=== PATIENT | female | born 1990 | race Caucasian/White ===

== ENCOUNTER → 2022-09-13 16:34 | Outpatient (BNVA) | payer MEDICAID, SELFPAY | PROVIDERS: Visit Provider Nurse Practitioner Family | DX: R30.0 Dysuria (principal); N76.0 Acute vaginitis; B96.89 Other specified bacterial agents as the cause of diseases classified elsewhere; W57.XXXA Bitten or stung by nonvenomous insect and other nonvenomous arthropods, initial encounter; B37.9 Candidiasis, unspecified; F32.9 Major depressive disorder, single episode, unspecified; F41.0 Panic disorder [episodic paroxysmal anxiety]; F41.9 Anxiety disorder, unspecified; M79.7 Fibromyalgia; F43.10 Post-traumatic stress disorder, unspecified; R53.83 Other fatigue; B37.0 Candidal stomatitis; J03.80 Acute tonsillitis due to other specified organisms | CPT/HCPCS: 80053; 84443; 85651; 86003; 86008; 86140; 86618; 86666; 86757; 87491; 87591; 87661 ==

== ENCOUNTER → 2022-10-05 10:25 | Outpatient (BNVA) | payer MEDICAID, SELFPAY | PROVIDERS: Visit Provider Nurse Practitioner Family | DX: R73.9 Hyperglycemia, unspecified (principal) | CPT/HCPCS: 82962 ==

== ENCOUNTER 2022-11-27 17:55 | Emergency (ER) | payer MEDICAID, SELFPAY ==
[2022-11-27 17:56] VITALS: BP 141/83; PULSE 93; RESP 15; TEMP 36.8; O2SAT 98; BMI 25.6
--- NOTE | 2022-11-27 18:33 | W.ED.PSYCHS ---
HPI - Psych General: Chief Complaint: Psychiatric Symptoms Stated Complaint: PSYCH EVAL Time Seen by Provider: 11/27/22 18:06 Source: patient Mode of arrival: EMS Limitations: no limitations History of Present Illness: This patient was transported to our emergency department from her home by EMS. Patient alleges that she has not slept for many days, someone has been messing with her medicine, people are changing her thermostat in her home and she is uncertain of why these events are occurring. She states that she has not had thoughts of harming herself or others. She denies hallucinations. She states she lives with another individual and also shares 2 children with their father. She denies any recent illness. Associated psychiatric symptoms: racing thoughts Associated symptoms: Deny auditory hallucinations, visual hallucinations, homicidal ideation or suicidal ideation Review of Systems Const: Denies: fever(s) or chills Eyes: Denies: change in vision ENMT: Denies: throat pain or odynophagia Card: Denies: chest pain, syncope or pre-syncope Resp: Denies: dyspnea, productive cough or non-productive cough GI: Denies: abdominal pain, nausea, vomiting or diarrhea : Denies: flank pain, difficulty voiding, dysuria, vaginal bleeding or vaginal discharge Musc: Denies: neck pain or back pain Skin/Breast: Denies: rash Neuro: Denies: headache(s), numbness in extremities or weakness in extremities Psych: Reports: anxiety, sleeping less and difficulty concentrating; Denies: visual hallucinations, auditory hallucinations, suicidal ideation or homicidal ideation PFS ED PFSH: Social History Current occupational status: employed Current gender identity: Female Special martin needs: No Physical Exam Narrative: EXAM NARRATIVE: The patient generally is cooperative. She will stop midsentence and then to be recentered and then will continue with the conversation. Const: COMMON NORMALS: average body habitus and alert GENERAL APPEARANCE: cooperative ORIENTATION/CONSCIOUSNESS: Yes awake HENMT: COMMON NORMALS: normocephalic, Normal nasal mucous membranes and turbinates present, moist oral mucous membranes and oropharynx normal HEAD & SCALP: normocephalic NOSE: Normal nasal mucous membranes and turbinates present Eye: COMMON NORMALS: Equal, round and reactive pupils present, EOMs intact bilaterally and conjunctivae normal CONJUNCTIVA: Yes conjunctivae normal PUPIL: Yes Equal, round and reactive pupils present Neck/C-Spine: COMMON NORMALS: full ROM, no lymphadenopathy and supple Chest: COMMONS NORMALS: normal inspection of the chest Resp: COMMON NORMALS: normal respiratory effort, No retractions and clear to auscultation bilaterally AUSCULTATION: clear to auscultation bilaterally Cardio: COMMON NORMALS: regular rate, regular rhythm, No murmurs present (Cardio) and Peripheral pulses 2+ throughout RATE: regular rate RHYTHM: regular rhythm PERIPHERAL PULSES: Peripheral pulses 2+ throughout GI: COMMON NORMALS: Normal to inspection, nondistended, normoactive bowel sounds present, Soft to palpation and non-tender PALPATION: Yes Soft to palpation : COMMON NORMALS: Yes no CVA tenderness BLADDER/KIDNEY EXAM: Yes no CVA tenderness Back/Pelvis: COMMON NORMALS: no CVA tenderness, thoracic and lumbar spine normal to inspection, no thoracic nor lumbar tenderness, thoraco-lumbar ROM normal and straight leg raise negative bilaterally Extremity: COMMON NORMALS: normal to inspection, full ROM, capillary refill normal, no calf tenderness and no pedal edema Neuro: COMMON NORMALS: moves all extremities, no focal motor deficits and no sensory deficits noted SENSORIUM/ORIENTATION: Yes alert CRANIAL NERVES: Yes CN normal except as noted Psych: COMMON NORMALS: cooperative ATTITUDE: Yes evasive ACTIVITY/MOTOR BEHAVIOR: Yes appropriate eye contact, Yes fidgeting and Yes disorganized behavior SPEECH: Yes rapid MOOD & AFFECT: Yes Labile affect present THOUGHT PROCESS: Circumstantial thought process present and disorganized INSIGHT: Limited insight present (Psych) JUDGEMENT: Limited judgement present (Psych) Skin: COMMON NORMALS: no rashes or lesions noted and no wounds NARRATIVE SKIN EXAM: Numerous skin tattoos noted GENERAL SKIN EXAM: no rashes or lesions noted Course Reevaluation(s): Reevaluation #1: Patient continues to state that she will give us a urine sample goes to the bathroom and then comes back with a sample cup that is empty and that she throws in the trash. She is very evasive about answering many of my questions. Time: 20:56 Reevaluation #2: Patient remains uncooperative want to comply with any of our request forAnd invasive. She does not rating provide a urine sample or otherwise engaging us in an attempt to determine what her ultimate needs and desires to be. At no time during the emergency department evaluation as she exhibited any thoughts of self-harm or harm to others. While she is evasive she certainly remains alert and findings it was suggested Not exhibiting any acute psychosis acute psychosis, intoxication, under the influence, inability to make decisions. Based upon current presentation disease she does not exhibit any findings to suggest a acute mental health emergency and suitable to be discharged with return precautions. Time: 21:46 Vital Signs: Vital signs: Vital Signs Temperature 98.2 F 11/27/22 17:56 Pulse Rate 93 11/27/22 17:56 Respiratory Rate 15 11/27/22 17:56 Blood Pressure 141/83 11/27/22 17:56 Pulse Oximetry 98 11/27/22 17:56 Oxygen Delivery Me thod Room Air 11/27/22 17:56 MDM - Psych Medical Decision Making This patient presented to our emergency department from her home via EMS at her request. Her complaint and/or desires from the emergency department visit were very very vague from the beginning and continued to be so throughout her evaluation and observation time in the emergency department. He was very forthcoming in that she had no desires thoughts or plan to harm herself or others. She adamantly denied any hallucinations or other loosening of associations. She initially said she wanted to be left alone and wanted a nap because she had not slept well recently. We continue to engage her in attempts to obtain urine sample for additional evaluation which she was very evasive and continue to refuse to provide such samples. She remained otherwise reasonably cooperative and when asked on multiple occasions whether she would like to go home she expressed in the affirmative. After prolonged period of observation in the emergency department is felt that she was not an obvious risk to herself or others and certainly had the ability to make life decisions and treatment decisions and was not cooperating in any attempt to provide her additional evaluation and/or offer her additional treatment. She has been discharged in a stable condition with return precautions. Medical Records I reviewed the patient's medical records. Prior history of hyperactivity disorder without any history of suicidality, depression etc. Lab Data I reviewed the patient's lab results. 11/27/22 19:10 11/27/22 19:10 Laboratory Results WBC 10.24 10^3/uL (3.29-11.43) 11/27/22 19:10 RBC 3.51 10^6/uL (3.85-5.65) L 11/27/22 19:10 Hgb 10.90 g/dL (11.27-16.99) L 11/27/22 19:10 Hct 32.6 % (36-47) L 11/27/22 19:10 MCV 92.9 fl (85-98) 11/27/22 19:10 MCH 31.1 pg (27-33) 11/27/22 19:10 MCHC 33.4 g/dL (30-55) 11/27/22 19:10 RDW 14.5 % (12.1-15.1) 11/27/22 19:10 Plt Count 280 10^3/cmm (157-399) 11/27/22 19:10 MPV 9.7 fL (7.4-10.4) 11/27/22 19:10 Neut % (Auto) 57.4 % 11/27/22 19:10 Lymph % (Auto) 34.1 % 11/27/22 19:10 Elk % (Auto) 6.5 % 11/27/22 19:10 Eos % (Auto) 1.1 % 11/27/22 19:10 Baso % (Auto) 0.6 % 11/27/22 19:10 Neut # (Auto) 5.88 10^3/uL (1.8-7.7) 11/27/22 19:10 Lymph # (Auto) 3.5 10^3/uL (0.8-4.8) 11/27/22 19:10 Elk # (Auto) 0.7 10^3/uL (0.2-0.9) 11/27/22 19:10 Eos # (Auto) 0.1 10^3/uL (0.0-0.8) 11/27/22 19:10 Baso # (Auto) 0.1 10^3/uL (0.0-0.1) 11/27/22 19:10 Nucleated RBC % (auto) 0 % 11/27/22 19:10 Nucleated RBCs # 0.0 /100WBC 11/27/22 19:10 Sodium 142 mmol/L (136-145) 11/27/22 19:10 Potassium 3.6 mmol/L (3.5-5.1) 11/27/22 19:10 Chloride 106 mmol/L (98-107) 11/27/22 19:10 Carbon Dioxide 26 mmol/L (22-29) 11/27/22 19:10 Anion Gap 13.6 (5-19) 11/27/22 19:10 BUN 5 mg/dL (6-20) L 11/27/22 19:10 Creatinine 0.7 mg/dL (0.5-0.9) 11/27/22 19:10 GFR Calculation 96.4 mL/min (90-130) 11/27/22 19:10 Glucose 108 mg/dL (65-115) 11/27/22 19:10 Calculated Osmolality 292 mOsm/kg (285-295) 11/27/22 19:10 Calcium 8.5 mg/dL (8.5-10.5) 11/27/22 19:10 Total Bilirubin 0.4 mg/dL (0.15-1.2) 11/27/22 19:10 AST 15 U/L (0-32) 11/27/22 19:10 ALT 15 U/L (0-33) 11/27/22 19:10 Alkaline Phosphatase 51 U/L (35-105) 11/27/22 19:10 Total Protein 6.8 g/dL (6.6-8.7) 11/27/22 19:10 Albumin 4.1 g/dL (3.5-5.2) 11/27/22 19:10 Globulin 2.7 g/dL (1.3-4.6) 11/27/22 19:10 Salicylates < 0.3 mg/dL (3-10) L 11/27/22 19:10 Acetaminophen < 5.0 ug/mL (10-30) L 11/27/22 19:10 No radiology studies performed this visit Discharge Plan Discharge Patient Disposition: Home Clinical Impression: ADHD (attention deficit hyperactivity disorder) Condition: Stable Prescriptions: No Action magnesium sulfate (bulk) [Epsom Salt] 100 % crystals 1 applic topical TID PRN (Reason: pain) Qty: 2500 0RF fluconazole [Diflucan] 100 mg tablet 100 mg PO DAILY 7 Days Qty: 7 0RF citalopram [Celexa] 40 mg tablet 40 mg PO DAILY 30 Days Qty: 30 5RF cyclobenzaprine 10 mg tablet 10 mg PO TID PRN (Reason: muscle spasm) Qty: 90 1RF guanfacine 1 mg tablet extended release 24 hr 1 mg PO DAILY 30 Days Qty: 30 5RF ibuprofen 800 mg tablet 800 mg PO TID PRN (Reason: pain) Qty: 90 1RF buspirone 10 mg tablet 10 mg PO TID PRN (Reason: anxiety) Qty: 90 0RF fluticasone propionate [Flonase Allergy Relief] 50 mcg/actuation spray,suspension 2 spray intranasal DAILY Qty: 16 3RF Rx Instructions: administer into each nostril cetirizine [Zyrtec] 10 mg tablet 10 mg PO DAILY 90 Days Qty: 90 1RF tramadol 50 mg tablet 50 mg PO TID PRN (Reason: pain) Qty: 90 0RF nystatin 100,000 unit/mL suspension 5 ml buccal TID Qty: 473 0RF Rx Instructions: administer 1/2 of dose in each side of the mouth Discharge Orders: Discharge ED (Routine); Ordered 11/27/22 Ordered By: Austyn Cooper Discharge Diet: Usual diet Discharge Activity: Resume usual activity Patient Instructions: Opioid Safety, Pain Management Activity Restrictions/Additional Instructions: Continue all your usual medications as prescribed. Follow-up with your regular doctor in the next 10 to 14 days for reevaluation. If it anytime you begin to have thoughts of harming yourself, harming or others, or any other concerning thoughts return to this emergency department for reevaluation. Coding Level of Care Code ED Correspondence Section Supervisor for Prerna Hugo
[2022-11-27 19:19] LABS: Basophils # 0.1 10^3/uL (0.0-0.1); Basophils % 0.6 %; Eosinophils # 0.1 10^3/uL (0.0-0.8); Eosinophils % 1.1 %; Hematocrit 32.6 % (36-47); Lymphocytes # 3.5 10^3/uL (0.8-4.8); Lymphocytes % 34.1 %; Mean Corpuscular HGB Conc 33.4 g/dL (30-55); Mean Corpuscular Hemoglobin 31.1 pg (27-33); Mean Corpuscular Volume 92.9 fl (85-98); Mean Platelet Volume 9.7 fL (7.4-10.4); Monocytes # 0.7 10^3/uL (0.2-0.9); Monocytes % 6.5 %; Neutrophils # 5.88 10^3/uL (1.8-7.7); Neutrophils % 57.4 %; Nucleated Red Blood Cells % 0 %; Platelet Count 280 10^3/cmm (157-399); Red Blood Count 3.51 10^6/uL (3.85-5.65); Red Cell Distribution Width 14.5 % (12.1-15.1); White Blood Count 10.24 10^3/uL (3.29-11.43)
[2022-11-27 19:34] LABS: Alanine Aminotransferase 15 U/L (0-33); Albumin Level 4.1 g/dL (3.5-5.2); Alkaline Phosphatase 51 U/L (35-105); Anion Gap 13.6 (5-19); Aspartate Amino Transferase 15 U/L (0-32); Blood Urea Nitrogen 5 mg/dL (6-20); Calcium 8.5 mg/dL (8.5-10.5); Carbon Dioxide 26 mmol/L (22-29); Chloride 106 mmol/L (98-107); Globulin 2.7 g/dL (1.3-4.6); Glomerular Filtration Rate 96.4 mL/min (90-130); Glucose 108 mg/dL (65-115); Osmolality Calculated 292 mOsm/kg (285-295); Potassium 3.6 mmol/L (3.5-5.1); Sodium 142 mmol/L (136-145); Total Bilirubin 0.4 mg/dL (0.15-1.2); Total Protein 6.8 g/dL (6.6-8.7)
[2022-11-27 19:35] LABS: Acetaminophen < 5.0 ug/mL (10-30); Salicylate < 0.3 mg/dL (3-10)
--- NOTE | 2022-11-27 22:28 | PC.NURSE ---
discharge. Patient was given discharge information. Patient became frustrated with me and said she had questions. I attempted to answer questions and she would not ask any questions. She stated fine i'm ready to leave. Patient refused to take her personal belongings. A ride was arranged by brother in [place] who is going to arrange an uber.
== END 2022-11-27 22:30 | disposition home or self-care (01) ==
PROVIDERS: Emergency Provider Emergency Medicine
DX: F90.9 Attention-deficit hyperactivity disorder, unspecified type (principal)
CPT/HCPCS: 36415; 80053; 80307; 85025; 99283

== ENCOUNTER 2022-11-27 23:41 | Emergency (ER) | payer MEDICAID, SELFPAY | END 2022-11-28 00:29 | disposition left against medical advice (07) | PROVIDERS: Emergency Provider Family Medicine | DX: Z53.21 Procedure and treatment not carried out due to patient leaving prior to being seen by health care provider (principal) | CPT/HCPCS: 99283 ==

== ENCOUNTER → 2023-02-07 08:15 | Outpatient (BNVA) | payer MEDICAID, SELFPAY | PROVIDERS: Visit Provider Nurse Practitioner Women's Health | DX: N92.6 Irregular menstruation, unspecified (principal); Z34.90 Encounter for supervision of normal pregnancy, unspecified, unspecified trimester; O21.9 Vomiting of pregnancy, unspecified | CPT/HCPCS: 81025 ==

== ENCOUNTER → 2023-02-15 10:58 | Outpatient (BNVA) | payer MEDICAID, SELFPAY | PROVIDERS: Visit Provider Obstetrics & Gynecology | DX: Z36.87 Encounter for antenatal screening for uncertain dates (principal) | CPT/HCPCS: 76817 ==

== ENCOUNTER → 2023-03-03 11:00 | Outpatient (BNVA) | payer MEDICAID, SELFPAY | PROVIDERS: Visit Provider Nurse Practitioner Women's Health | DX: Z34.90 Encounter for supervision of normal pregnancy, unspecified, unspecified trimester (principal) | CPT/HCPCS: 80307; 84439; 84443; 84481; 85025; 86592; 86762; 86803; 86850; 86900; 87086; 87340; 87806 ==

== ENCOUNTER → 2023-04-20 08:20 | Outpatient (BNVA) | payer MEDICAID, SELFPAY | PROVIDERS: Visit Provider Obstetrics & Gynecology | DX: Z3A.10 10 weeks gestation of pregnancy (principal); Z34.90 Encounter for supervision of normal pregnancy, unspecified, unspecified trimester | CPT/HCPCS: 84315; 87491; 87591; 87624 ==

== ENCOUNTER → 2023-05-11 09:20 | Outpatient (BNVA) | payer MEDICAID, SELFPAY | PROVIDERS: Visit Provider Nurse Practitioner Women's Health | DX: Z36.87 Encounter for antenatal screening for uncertain dates (principal) | CPT/HCPCS: 76805 ==

== ENCOUNTER → 2023-06-09 12:44 | Outpatient (BNVA) | payer MEDICAID, SELFPAY | PROVIDERS: Visit Provider Nurse Practitioner Women's Health | DX: Z34.90 Encounter for supervision of normal pregnancy, unspecified, unspecified trimester (principal) | CPT/HCPCS: 76816 ==

== ENCOUNTER 2023-06-14 19:04 | Emergency (ER) | payer MEDICAID, SELFPAY ==
[2023-06-14 19:05] VITALS: BP 112/75; PULSE 94; RESP 16; TEMP 36.7; O2SAT 99; BMI 30.4
[2023-06-14] MEDS: amoxicillin-clav 875-125 mg Tablet 1 TAB PO (19:25)
[2023-06-14] MEDS: BUPivacaine 0.5% INJ 10 mL INJECTION (19:26)
--- NOTE | 2023-06-14 19:31 | ED_ITS ---
Documented by User: KATIE Anaya 06/14/23 19:59 HPI - Dental/Oral General: Chief complaint: Dental/Oral Stated complaint: Tooth/Mouth pain Time Seen by Provider: 06/14/23 19:12 Source: patient Mode of arrival: ambulatory Limitations: no limitations History of Present Illness: This patient is a 32-year-old female presenting to the emergency department complaining of dental pain. Patient notes that she is 6 months and has been unable to see a dentist due to long wait times. Pain is noted to the left lower region, and states she has a broken tooth in the area that she believes is causing the pain. Being , she states she is unable to take ibuprofen and has been taking Advil nonstop. She states that she was considering going to emergency dentist in [place], however pain got too severe to handle tonight. She denies any fevers, sore throat, respiratory complaints, dizziness or lightheadedness, or any other symptoms at this time. She does note that the pain seems to be radiating up the left side of her face. MD Complaint: tooth pain Onset (ago): day(s) Duration: constant Severity: severe Relieving factors: nothing Context: history of dental caries and poor dental care Associated symptoms: Denies ear or mastoid pain or fever(s) Review of Systems General: Reports: 10 or more systems reviewed and unremarkable except in HPI and below Const: Denies: fever(s), chills or fatigue Eyes: Denies: change in vision ENMT: Reports: dental pain and sinus pain; Denies: throat pain, ear or mastoid pain or nasal discharge Card: Denies: chest pain, palpitations, swelling of feet/ankles or lightheadedness Resp: Denies: dyspnea, productive cough or wheezing GI: Denies: abdominal pain, nausea, vomiting, diarrhea or constipation : Denies: flank pain, difficulty voiding, dysuria or urinary frequency Musc: Denies: neck pain, back pain or joint pain Skin/Breast: Denies: rash Neuro: Denies: headache(s), numbness in extremities or weakness in extremities PFS ED PFSH: Medical History 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 Tooth sensitivity Chronic sore throat Family History Grandmother Thyroid disease Denies family history of Ovarian cancer Diabetes Heart disease Breast cancer Hypertension Uterine cancer Stroke Social History Current occupational status: employed Current gender identity: Female Special martin needs: No Physical Exam Const: COMMON NORMALS: no acute distress and healthy appearing GENERAL APPEARANCE: cooperative, comfortable and well developed HENMT: COMMON NORMALS: normocephalic, atraumatic, hearing grossly normal bilaterally, external ears normal, EAC's normal, TM's normal bilaterally, Normal external nose present and Normal nasal mucous membranes and turbinates present HEAD & SCALP: normal to inspection, normocephalic and atraumatic FACE & SINUS: normal facial exam and sinuses nontender NOSE: Normal external nose present, Normal nares present, No nasal polyps present and Normal nasal mucous membranes and turbinates present EXTERNAL EAR: Yes external ears normal EXTERNAL AUDITORY CANAL: EAC's normal TYMPANIC MEMBRANE: TM's normal bilaterally MOUTH: Normal oral and palatal mucosa present TEETH & GINGIVA: Yes abnormal tooth and associated gingiva lower left second molar tender, with associated gingival edema and dentin fractured, Yes multiple restorations and Yes poor dentition THROAT: posterior oropharynx normal and tonsils normal Eye: COMMON NORMALS: EOMs intact bilaterally, conjunctivae normal and normal visual gilliam by confrontation GENERAL EYE: appearance normal, both eyes and all related structures CONJUNCTIVA: Yes conjunctivae normal Neck/C-Spine: COMMON NORMALS: full ROM, no lymphadenopathy, supple and no meningeal signs GENERAL: Yes normal visual inspection Resp: COMMON NORMALS: normal respiratory effort and clear to auscultation bilaterally EFFORT & INSPECTION: Yes able to speak in complete sentences AUSCULTATION: clear to auscultation bilaterally Cardio: COMMON NORMALS: regular rate, regular rhythm, S1 normal heart sound present and S2 normal heart sound present RATE: regular rate RHYTHM: regular rhythm HEART SOUNDS: S1 normal heart sound present, S2 normal heart sound present, no gallops, no murmurs and no rubs Extremity: COMMON NORMALS: normal to inspection, full ROM and capillary refill normal Neuro: MENINGEAL SIGNS: Yes no meningeal signs Skin: COMMON NORMALS: no rashes or lesions noted GENERAL SKIN EXAM: no rashes or lesions noted Procedures Nerve Block Nerve Block 1: Time out performed: No Local Anesthetic: bupivacaine 0.5% Amount of anesthesia used (mL): 5 Side: left Intraoral Nerve Block: mental Procedure Successful: Yes Patient Tolerated Procedure: well and no complications Complications: none Additional Comments: Consent for operation or procedure: Risks and benefits discussed with patient and consent obtained Anesthesia: 5 ml of Bupivicaine The distribution of the mental nerve was identified. Bupivacaine was injected into that region. A short time later adequate analgesia was obtained. Estimated Blood Loss: none Complications: The patient tolerated the procedure well without complications. Course Vital Signs: Vital signs: Vital Signs Temperature 98.1 F 06/14/23 19:43 Pulse Rate 94 06/14/23 19:43 Respiratory Rate 16 06/14/23 19:43 Blood Pressure 112/75 06/14/23 19:43 Pulse Oximetry 99 06/14/23 19:43 Oxygen Delivery Me thod Room Air 06/14/23 19:05 MDM - Dental/Oral Medical Decision Making Patient seen evaluated due to left lower dental pain. Has not been able to see the dentist due to wait times. Patient is 6 months . Vitals stable on arrival. Exam did show poor dentition with a fractured tooth confluent with the pain. Due to clinical presentation, will treat patient for suspected dental abscess. However I did inform her to follow-up with emergency dentist in [place] if her pain continue to worsen. I did perform a mental block in the ED for immediate pain relief, which was successful. See procedure note. All other questions and concerns addressed at this time. Return precautions given. No radiology studies performed this visit Discharge Plan Discharge Patient Disposition: Home Clinical Impression: Abscess, dental Condition: Stable Prescriptions: New amoxicillin-pot clavulanate 875-125 mg tablet 1 tab PO BID 10 Days Qty: 20 0RF No Action metoclopramide HCl [Reglan] 5 mg tablet 5 mg PO DAILY Qty: 30 2RF metronidazole 500 mg tablet 500 mg PO BID Qty: 14 0RF miconazole nitrate [Monistat 7] 2 % cream 1 appful vaginal DAILY 7 Days Qty: 45 2RF cetirizine [Zyrtec] 10 mg tablet 10 mg PO DAILY 90 Days Qty: 90 1RF (DME) Sensodyne Toothpaste See Rx Instructions .Route Qty: 113 3RF Rx Instructions: As directed fluticasone propionate [Flonase Allergy Relief] 50 mcg/actuation spray,suspension 2 spray intranasal DAILY Qty: 16 3RF Rx Instructions: administer into each nostril fluoxetine [Prozac] 20 mg capsule 20 mg PO DAILY See Rx Instructions .ROUTE .COMPLEX Qty: 30 5RF Dose Instruction: TAKE ONE TABLET BY MOUTH DAILY Rx Instructions: TAKE ONE TABLET BY MOUTH DAILY Prozac 20 mg capsule 20 mg PO DAILY 30 Days Qty: 30 1RF Discharge Orders: Discharge ED (Routine); Ordered 06/14/23 Ordered By: Jhony Tomas Referrals: Ashley Rodriguez NP [Primary Care Provider] - Discharge Diet: Usual diet Discharge Activity: Increase activity as tolerated Patient Instructions: Dental Abscess (ED) Activity Restrictions/Additional Instructions: Augmentin as prescribed. Plenty of fluids. Please follow-up with dentist as instructed. Return if you develop any new or concerning symptoms. 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 Tooth sensitivity Chronic sore throat Family History Grandmother Thyroid disease Denies family history of Ovarian cancer Diabetes Heart disease Breast cancer Hypertension Uterine cancer Stroke Social History Current occupational status: employed Current gender identity: Female Special martin needs: No Course Vital Signs: Vital signs: Vital Signs Temperature 98.1 F 06/14/23 19:43 Pulse Rate 94 06/14/23 19:43 Respiratory Rate 16 06/14/23 19:43 Blood Pressure 112/75 06/14/23 19:43 Pulse Oximetry 99 06/14/23 19:43 Oxygen Delivery Me thod Room Air 06/14/23 19:05 MDM - Dental/Oral Medical Decision Making Patient seen evaluated due to left lower dental pain. Has not been able to see the dentist due to wait times. Patient is 6 months . Vitals stable on arrival. Exam did show poor dentition with a fractured tooth confluent with the pain. Due to clinical presentation, will treat patient for suspected dental abscess. However I did inform her to follow-up with emergency dentist in [place] if her pain continue to worsen. I did perform a mental block in the ED for immediate pain relief, which was successful. See procedure note. All other questions and concerns addressed at this time. Return precautions given. Chart reviewed Discharge Plan Discharge Patient Disposition: Home Clinical Impression: Abscess, dental Condition: Stable Prescriptions: New amoxicillin-pot clavulanate 875-125 mg tablet 1 tab PO BID 10 Days Qty: 20 0RF No Action metoclopramide HCl [Reglan] 5 mg tablet 5 mg PO DAILY Qty: 30 2RF metronidazole 500 mg tablet 500 mg PO BID Qty: 14 0RF miconazole nitrate [Monistat 7] 2 % cream 1 appful vaginal DAILY 7 Days Qty: 45 2RF cetirizine [Zyrtec] 10 mg tablet 10 mg PO DAILY 90 Days Qty: 90 1RF (DME) Sensodyne Toothpaste See Rx Instructions .Route Qty: 113 3RF Rx Instructions: As directed fluticasone propionate [Flonase Allergy Relief] 50 mcg/actuation spray,suspension 2 spray intranasal DAILY Qty: 16 3RF Rx Instructions: administer into each nostril fluoxetine [Prozac] 20 mg capsule 20 mg PO DAILY See Rx Instructions .ROUTE .COMPLEX Qty: 30 5RF Dose Instruction: TAKE ONE TABLET BY MOUTH DAILY Rx Instructions: TAKE ONE TABLET BY MOUTH DAILY Prozac 20 mg capsule 20 mg PO DAILY 30 Days Qty: 30 1RF Discharge Orders: Discharge ED (Routine); Ordered 06/14/23 Ordered By: Jhony Tomas Referrals: Ashley Rodriguez NP [Primary Care Provider] - Discharge Diet: Usual diet Discharge Activity: Increase activity as tolerated Patient Instructions: Dental Abscess (ED) Activity Restrictions/Additional Instructions: Augmentin as prescribed. Plenty of fluids. Please follow-up with dentist as instructed. Return if you develop any new or concerning symptoms. Coding Level of Care Code ED Real Estate Professional for Prerna Hugo
[2023-06-14 19:43] VITALS: BP 112/75; PULSE 94; RESP 16; TEMP 36.7; O2SAT 99
== END 2023-06-14 19:44 | disposition home or self-care (01) ==
PROVIDERS: Emergency Provider Physician Assistant; PCP Nurse Practitioner Family
DX: K04.7 Periapical abscess without sinus (principal)
CPT/HCPCS: 99283; J3490

== ENCOUNTER → 2023-07-18 14:50 | Outpatient (BNVA) | payer MEDICAID, SELFPAY | PROVIDERS: PCP Nurse Practitioner Family; Visit Provider Obstetrics & Gynecology | DX: Z34.90 Encounter for supervision of normal pregnancy, unspecified, unspecified trimester | CPT/HCPCS: 82950; 84315 ==

== ENCOUNTER → 2023-08-29 12:10 | Outpatient (BNVA) | payer MEDICAID, SELFPAY | PROVIDERS: PCP Nurse Practitioner Family; Visit Provider Obstetrics & Gynecology | DX: Z34.90 Encounter for supervision of normal pregnancy, unspecified, unspecified trimester (principal) | CPT/HCPCS: 84315; 87081 ==

== ENCOUNTER 2023-09-19 06:25 | Inpatient (IN) | payer MEDICAID, SELFPAY ==
--- NOTE | 2023-09-08 10:55 | P.ANESASSM_ITS ---
Pre-Anesthetic Assessment Height/Weight: Height 1.6 m Operation Date: 09/19/23 07:20 Proposed Procedures p Section Repeat With Tubal 33326, 39757,O34.219, Z30.2(Bilateral) - Bro Fisher MD Exam alert, oriented x 3, clear to auscultation bilaterally and regular rate & rhythm anxiety Airway Submandibular: within normal limits Cervical ROM: within normal limits Mallampati: Class I History/ROS No significant history except as noted Neuropsych Anxiety Anesthetic Plan Anesthesia: Regional (specify below) Other: spinal Risk of > 500 ml blood loss (7ml/kg in children): Yes, adequate IV access and fluids planned Medications/Allergies Home Medications Medication Instructions Recorded Confirmed Last Taken Type fluoxetine 20 mg capsule (Prozac) 20 mg PO DAILY 30 days #30 caps 12/08/22 09/07/23 Unknown Rx cetirizine 10 mg tablet (Zyrtec) 10 mg PO DAILY 90 days #90 tabs 12/21/22 09/07/23 Unknown Rx fluticasone propionate 50 2 spray intranasal DAILY #16 grams 12/21/22 09/07/23 Unknown Rx mcg/actuation nasal spray,suspension (Flonase Allergy Relief) fluoxetine 20 mg capsule (Prozac) 20 mg PO DAILY 02/07/23 09/07/23 Unknown History metoclopramide HCl 5 mg tablet 5 mg PO DAILY #30 tabs 03/10/23 09/07/23 Unknown Rx (Reglan) See Rx Instructions .Route 03/17/23 09/07/23 Unknown Rx .COMPLEX #30 ea miconazole nitrate 2 % vaginal 1 appful vaginal DAILY 7 days #45 04/20/23 09/07/23 Unknown Rx cream (Monistat 7) grams penicillin V potassium 500 mg 500 mg PO TID #30 tabs 07/18/23 09/07/23 Unknown Rx tablet Allergies Allergy/AdvReac Type Severity Reaction Status Date / Time Alpha-Gal Allergy Severe ADR-Abdominal Verified 09/07/23 10:48 ([id number],3-[facility] Anesthesia Medical History 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
[2023-09-19] VITALS (23 sets, daily range): BP systolic 108–168; BP diastolic 66–102; PULSE 71–107; RESP 18; TEMP 36.8–37.1; BMI 34.5
--- NOTE | 2023-09-19 01:52 | PM.OBGYHP ---
Providers/Chief Complaint Admitting Physician: Bro Fisher MD Primary RESEARCH AGRICULTURAL ENGINEER: Bro Fisher MD Primary Care Provider: Ashley Rodriguez NP Chief Complaint: Epi Consult HPI RESEARCH AGRICULTURAL ENGINEER History of Present Illness 32 y.o. EDC September 23, 2023 At 39 w 3 d No complications No c/o + active movements h/o c-sections x two patient wants repeat and permanent sterilization Medications/Allergies Home Medications Medication Instructions Recorded Confirmed Last Taken Type fluoxetine 20 mg capsule (Prozac) 20 mg PO DAILY 30 days #30 caps 12/08/22 09/12/23 Unknown Rx cetirizine 10 mg tablet (Zyrtec) 10 mg PO DAILY 90 days #90 tabs 12/21/22 09/12/23 Unknown Rx fluticasone propionate 50 2 spray intranasal DAILY #16 grams 12/21/22 09/12/23 Unknown Rx mcg/actuation nasal spray,suspension (Flonase Allergy Relief) fluoxetine 20 mg capsule (Prozac) 20 mg PO DAILY 02/07/23 09/12/23 Unknown History metoclopramide HCl 5 mg tablet 5 mg PO DAILY #30 tabs 03/10/23 09/12/23 Unknown Rx (Reglan) See Rx Instructions .Route 03/17/23 09/12/23 Unknown Rx .COMPLEX #30 ea miconazole nitrate 2 % vaginal 1 appful vaginal DAILY 7 days #45 04/20/23 09/12/23 Unknown Rx cream (Monistat 7) grams penicillin V potassium 500 mg 500 mg PO TID #30 tabs 07/18/23 09/12/23 Unknown Rx tablet Allergies Allergy/AdvReac Type Severity Reaction Status Date / Time Alpha-Gal Allergy Severe ADR-Abdominal Verified 09/12/23 11:11 (Fvgbhgrgb-Wadqp-6,3-Gala Pain PFSH RESEARCH AGRICULTURAL ENGINEER PFSH: Medical History 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 Tooth sensitivity Chronic sore throat Family History Grandmother Thyroid disease Denies family history of Ovarian cancer Diabetes Heart disease Breast cancer Hypertension Uterine cancer Stroke Social History Smoking and tobacco/nicotine status: former use of tobacco/nicotine Personal Safety: Do you feel safe at home: Yes Victim of physical abuse: No Victim of emotional abuse: No Victim of sexual abuse: No History History History 3 Term 2 0 Miscarriages/Ectopic 0 Living Children 2 Care ABENA Calculator Estimated Delivery Date Method Current WG Current Estimate 09/23/23 LMP (Certain) 39w 3d Other Estimates 09/21/23 Ultrasound #1 39w 5d Physical Exam Narrative: Weight 184 lbs, 5?3? VS normal General: comfortable, awake, alert Lungs: clear Cor: RRR Abd: soft, nontender FH 37 cm FHTs normal Ext: normal Results Labs OB ([facility]): Obstetrics 06/09/23 Blood Type A Positive 03/03/23 Antibody Screen Negative 03/03/23 Hct 36.7 % (36-47) 03/03/23 Hgb 12.20 g/dL (11.27-16.99) 03/03/23 Rho(D) Type Rh positive 03/03/23 Plt Count 335 10^3/cmm (157-399) 03/03/23 Hep Bs Antigen Non-reactive (Nonreactive) 03/03/23 Hepatitis C Antibody Non-reactive (Nonreactive) 03/03/23 Rubella IgG Antibody 16.3 IU/mL (0.0-10.0) H 03/03/23 RPR Nonreactive (Nonreactive) 03/03/23 HIV 1&2 Ab & HIV 1 Ag Non-reactive (Non-Reactiv) 03/03/23 TSH 0.27 uIU/mL (0.27-4.20) 03/03/23 Free T4 1.05 ng/dL (0.82-1.77) 03/03/23 C.trachomatis RNA (TMA) Not detected (NOT DETECTED) 04/20/23 N.gonorrhoeae RNA (TMA) Not detected (NOT DETECTED) 04/20/23 T. vaginalis Amp RNA Not detected (NOT DETECTED) 04/20/23 Chlamydia/GC Comment See note 04/20/23 Cystic Fibrosis Screen Negative 03/03/23 Glucose 1 Hr 50 gm 123 mg/dL (85-140) 07/18/23 HCG, Qual Positive (Negative) H 02/07/23 Urine Opiates Screen Negative ng/mL (Negative) 03/03/23 Ur Barbiturates Screen Negative ng/mL (Negative) 03/03/23 Ur Phencyclidine Scrn Negative ng/mL (Negative) 03/03/23 Ur Amphetamines Screen Negative ng/mL (Negative) 03/03/23 U Benzodiazepines Scrn Negative ng/mL (Negative) 03/03/23 Urine Cocaine Screen Negative ng/mL (Negative) 03/03/23 U Marijuana (THC) Screen Negative ng/mL (Negative) 03/03/23 Micro Urine Specimen 03/03/23 Pap Smear Interpret See note 04/20/23 A&P Assessment and plan (1) : 39 w 3 d Qualifiers: Weeks of gestation: 10 weeks Qualified Code(s): Z3A.10 - 10 weeks gestation of (2) H/O: : h/o c-sections x two plan repeat for delivery procedure and risks explained to patient Risks include, but not limited to, infection, bleeding, injury to internal organs, anesthesia, blood transfusions patient understands and wants to proceed (3) Group B streptococcus urinary tract infection affecting : (4) Encounter for consultation for female sterilization: Desires permanent sterilization Patient does not want reversible control Patient adamant re permanent sterilization Understands irreversibility of procedure plan bilateral partial salpingectomy procedure and risks explained to patient risks include, but not limited to, future or ectopic patient understands and wants to proceed Attestations Medical Necessity Statement*: patient at 39 w 3 d, h/o previous c-sections x two, admitted for repeat Coding Level of Care Code Acute Code for Chg Fwd Diagnoses 10 weeks gestation of Z3A.10 Weeks of gestation: 10 weeks H/O: Z98.891 Group B streptococcus urinary tract infection affecting O23.40; B95.1 Encounter for consultation for female sterilization Z30.09 Time Spent (min) 30
[2023-09-19] MEDS: lactated ringers 1,000 ML 999 ML IV (06:41)
[2023-09-19 06:45] LABS: Basophils # 0.1 10^3/uL (0.0-0.1); Basophils % 0.3 %; Eosinophils # 0.1 10^3/uL (0.0-0.8); Eosinophils % 0.7 %; Hematocrit 36.3 % (36-47); Lymphocytes # 4.3 10^3/uL (0.8-4.8); Lymphocytes % 24.2 %; Mean Corpuscular HGB Conc 34.2 g/dL (30-55); Mean Corpuscular Hemoglobin 33.2 pg (27-33); Mean Corpuscular Volume 97.3 fl (85-98); Mean Platelet Volume 10.9 fL (7.4-10.4); Monocytes # 1.2 10^3/uL (0.2-0.9); Monocytes % 6.6 %; Neutrophils # 12.02 10^3/uL (1.8-7.7); Nucleated Red Blood Cells % 0 %; Platelet Count 250 10^3/cmm (157-399); Red Blood Count 3.73 10^6/uL (3.85-5.65); Red Cell Distribution Width 13.5 % (12.1-15.1); White Blood Count 17.93 10^3/uL (3.29-11.43)
--- NOTE | 2023-09-19 07:10 | P.ANESUD_ITS ---
Pre-Anesthetic Update Pre-Anesthetic Assessment: Date of Surgery/Procedure: 09/19/23 Preop Karlee gnosis: IUP Proposed Procedure: Operation Date: 09/19/23 07:00 Proposed Procedures p Section Repeat With Tubal 39420, 90216,O34.219, Z30.2(Bilateral) - Bro Fisher MD Any changes to Pre-Anesthetic Assessment?: No Labs Last 48hrs: Short CBC 09/19/23 Range/Units 06:27 WBC 17.93 H (3.29-11.43) 10^ 3/uL Hgb 12.40 (11.27-16.99) g/ dL Hct 36.3 (36-47) % MCV 97.3 (85-98) fl Plt Count 250 (157-399) 10^3/c mm Neut % (Auto) 67.0 % Neut # (Auto) 12.02 H (1.8-7.7) 10^3/u L Vitals: Pulse Rate 101 H 09/19/23 07:00 Pulse Rhythm Regular 09/19/23 06:43 Pulse Strength 3+ Normal 09/19/23 06:43 Respiratory Effort Spontaneous, Non- Labored 09/19/23 06:43 Respiratory Depth Normal 09/19/23 06:43 Respiratory Patter n Normal 09/19/23 06:43 Blood Pressure 168/92 09/19/23 07:00 Oxygen Delivery Me thod Room Air 09/19/23 06:43 Exam: Pre-Anes Outpt Exam: alert and oriented x 3 Cardiac Studies: No Data to Display
[2023-09-19] MEDS: famotidine 20 mg/2 mL INJ IVP (07:16)
[2023-09-19] MEDS: citric acid-sodium citrate 30 mL UDC PO (07:16)
[2023-09-19] MEDS: ceFAZolin 2,000 mg SDV 2000 MG IVP (07:16)
[2023-09-19] MEDS: metoclopramide 5 mg/mL SDV 2 mL 10 MG IVP (07:17)
--- NOTE | 2023-09-19 07:17 | W.PM.OPSUD ---
Surgery/Procedure H&P Update DATE OF PROCEDURE: September 19, 2023 DATE H&P PERFORMED: 09/19/23 H&P UPDATE INFORMATION: I have reviewed H&P completed within last 30 days, I have examined patient prior to procedure and No changes to prior documentation PREOP DIAGNOSIS: IUP PLANNED PROCEDURE: Operation Date: 09/19/23 07:00 Proposed Procedures p Section Repeat With Tubal 09306, 78604,O34.219, Z30.2(Bilateral) - Bro Fisher MD
--- NOTE | 2023-09-19 09:25 | P.OP_ITS ---
Operative Report Date of procedure: September 19, 2023 Pre-op diagnosis: 39 ? weeks gestation Previous x two For repeat Desires permanent sterilization Post-op diagnosis: same Post-op findings: Vigorous female Normal placenta and cord Normal uterus, tubes, and ovaries Procedure done: Repeat low-transverse Bilateral partial salpingectomy Implants: none Specimens removed/disposition: placenta and cord, discarded Surgeon: Bro Fisher MD Anesthesia: Spinal Estimated blood loss (mL): 400 Complications: none Findings: Vigorous female Normal placenta and cord Normal uterus, tubes, and ovaries Condition: stable Disposition: floor Brief History: Patient with previous x two, scheduled for repeat . In addition, she wanted permanent sterilization. She understands irreversibility of the procedure and refused reversible types of control. Procedure: Informed consent signed. Patient was taken to the operating room, placed supine in the left lateral tilt position. Spinal anesthesia and a Villanueva catheter were already placed. The abdomen was prepped and draped in the usual sterile fashion. A Pfannenstiel incision was made over an old scar and carried down through skin and subcutaneous tissue and fascia. The fascial incision was extended laterally w ith Li scissors. The fascia was from the underlying rectus muscles. The rectus muscles were split in the midline. The peritoneum was entered bluntly avoiding underlying organs. A bladder flap was created. A low transverse uterine incision was made and extended laterally bluntly avoiding the uterine vessels. Meconium-stained amniotic fluid was seen. The baby was delivered in cephalic presentation atraumatically. The baby was suctioned. The cord was clamped and cut and the baby was handed to an awaiting assistant press operator offset. Cord blood was obtained. The placenta was manually removed intact. The uterine cavity was bluntly curetted with wet laps. The uterine incision was then closed with a continuous interlocking stitich of O chromic. Adequate hemostasis was seen. No bleeding was seen. Attention was then turned to the bilateral tubal ligation. The left fallopian tube was identified to its fimbrial end. The mid-tube region was grasped with a Lesa and an opening was made in the mesosalpinx. The fallopian tube was then ligated proximally and distally with a free tie of 2-O chromic. A 3 cm segment of fallopian tube was excised using Metzenbaum scissors. The proximal and distal ends were cauterized with the bovie. The right fallopian tube was similarly identified to its fimbrial end. An opening was made in the mesaosalpinx and the right fallopian tube was ligated proximally and distally with a tie of 2-O chromic. A 3 cm segment of fallopian tube was excised using Metzenbaum scissors. The proximal and distal ends were cauterized with the bovie. No bleeding was seen. The uterine incision was again inspected and found to have good hemostasis. Inspection of the tubal ligation sites and the uterine incision showed adequate hemostasis. The fascia was then closed with a continuous stitch of O-Vicryl. Additional interrupted stitches of O-Vicryl were used for fascial closure. The subcutaneous tissue was irrigated and inspected for hemostasis. The skin was then reapproximated using Insorb moisés. Postoperative condition stable Disposition to recovery room Estimated blood loss 400 cc, no replacement Sponge, needle, and instrument counts were correct x two There were no complications
[2023-09-19] MEDS: HYDROcodone-acetaminophen 5-325 mg Tablet PO ×3 (12:44→21:52)
--- NOTE | 2023-09-19 13:22 | ANE.PACU2 ---
Inpatient post-anesthesia follow up: Airway intact: Yes Vital signs: Temperature Pulse Rate 96 Respiratory Rate Blood Pressure 135/80 Pulse Oximetry Oxygen Delivery Me thod Room Air Oxygen Flow Rate Fraction of Inspir ed Oxygen Hydration adequate: Yes Nausea and vomiting: No Pain level: 1 Mental status: Baseline
--- NOTE | 2023-09-19 15:57 | PC.NURSE ---
Patient reports that she passed gas at this time.
[2023-09-19] MEDS: ketorolac 30 mg/mL INJ IVP (16:27)
[2023-09-19] MEDS: dextrose 5%-lactated ringers 1,000 ML 125 ML IV (17:49)
[2023-09-19] MEDS: docusate sodium 100 mg Capsule PO (17:50)
[2023-09-19] MEDS: sodium chloride 0.9% 500 ML 999 ML IV (17:50)
[2023-09-19 21:27] LABS: Hematocrit 31.7 % (36-47); Mean Corpuscular HGB Conc 33.4 g/dL (30-55); Mean Corpuscular Volume 98.8 fl (85-98); Mean Platelet Volume 11.2 fL (7.4-10.4); Platelet Count 223 10^3/cmm (157-399); Red Blood Count 3.21 10^6/uL (3.85-5.65); Red Cell Distribution Width 13.3 % (12.1-15.1); White Blood Count 18.13 10^3/uL (3.29-11.43)
[2023-09-19] MEDS: simethicone 80 mg Chew PO (21:52)
[2023-09-20] MEDS: HYDROcodone-acetaminophen 5-325 mg Tablet PO ×4 (03:57→18:28)
[2023-09-20 05:15] VITALS: BP 147/72; PULSE 110
[2023-09-20] MEDS: PRENATAL VIT NO.130/IRON/FOLIC 1 EACH TABLET PO (09:37)
[2023-09-20] MEDS: docusate sodium 100 mg Capsule PO (09:37)
[2023-09-20] MEDS: ibuprofen 800 mg tablet PO ×2 (09:37→14:40)
[2023-09-20] MEDS: simethicone 80 mg Chew PO (09:37)
[2023-09-20 09:40] VITALS: BP 118/62; PULSE 84; RESP 18; TEMP 36.7
[2023-09-20 18:21] VITALS: BP 137/92; PULSE 96; RESP 16; TEMP 36.8
[2023-09-20 18:40] VITALS: BP 137/92; PULSE 96; RESP 16; TEMP 36.8
== END 2023-09-20 18:47 | disposition home or self-care (01) | DRG 785 ==
PROVIDERS: Admitting Provider Obstetrics & Gynecology; PCP Nurse Practitioner Family; Visit Provider Obstetrics & Gynecology
PROC: 10D00Z1 Extraction of Products of Conception, Low, Open Approach (ICD-10-PCS; CPT 59514; principal; 2023-09-19 07:00)
DX: O34.211 Maternal care for low transverse scar from previous cesarean delivery (principal); N85.8 Other specified noninflammatory disorders of uterus; Z3A.39 39 weeks gestation of pregnancy; Z37.0 Single live birth; Z30.2 Encounter for sterilization
CPT/HCPCS: 36415; 51702; 59025; 59409; 85025; 85027; 86850; 86900; 88302; 96374; 96376; J0690; J1200; J1885; J2274; J2371; J2405; J2765; J3010; J3490; J7040; J7120; J7121

== ENCOUNTER → 2023-10-18 11:14 | Outpatient (BNVA) | payer MEDICAID, SELFPAY | PROVIDERS: PCP Nurse Practitioner Family; Visit Provider Obstetrics & Gynecology | DX: N89.8 Other specified noninflammatory disorders of vagina (principal) | CPT/HCPCS: 81000 ==

== ENCOUNTER → 2023-10-27 15:52 | Outpatient (BNVA) | payer MEDICAID, SELFPAY | PROVIDERS: PCP Nurse Practitioner Family; Visit Provider Nurse Practitioner Family | DX: Z13.1 Encounter for screening for diabetes mellitus (principal); Z13.220 Encounter for screening for lipoid disorders; R10.11 Right upper quadrant pain; M79.7 Fibromyalgia; F41.0 Panic disorder [episodic paroxysmal anxiety]; F43.10 Post-traumatic stress disorder, unspecified; F41.9 Anxiety disorder, unspecified; F32.9 Major depressive disorder, single episode, unspecified; R53.83 Other fatigue | CPT/HCPCS: 80053; 80061; 82150; 83036; 84443; 85025 ==

== ENCOUNTER 2023-11-14 07:41 | Outpatient (CLI) | payer MEDICAID, SELFPAY ==
--- NOTE | 2023-11-14 07:45 | US_ITS ---
WS: [id number] RIGHT UPPER QUADRANT ULTRASOUND HISTORY: RUQ ABD, nausea COMPARISON: None available. Liver: 17.4 cm in length. Slightly enlarged liver. Very slight coarse echotexture but no mass. Portal triads are still present. No bile duct dilatation. Portal Vein: Normal hepatopetal flow with monophasic waveform. Gallbladder: Mild diffuse gallbladder wall thickening. No pericholecystic fluid. Gallbladder wall divina sures up to 4 mm. No stones are identified. CBD: 0.4 cm Pancreas: Head and tail are obscured. Body is normal. Right kidney: 11.8 cm in length. Normal size kidney. Upper pole cyst 1.6 x 1.6 x 1.4 cm. Aorta and IVC: Unremarkable abdominal aorta and IVC. No ascites. US/US gall bladder 98523 IMPRESSION: 1. Mild hepatomegaly. No mass. No bile duct dilatation. 2. Diffuse gallbladder wall thickening without cholelithiasis or pericholecyst ic fluid. Thickening may be related to chronic hepatocellular disease, nonfasti ng state or chronic cholecystitis. HIDA scan would provide additional informati on concerning gallbladder function.
== END 2023-11-14 07:42 | disposition home or self-care (01) ==
LOC: RAD 07:41
PROVIDERS: PCP Nurse Practitioner Family; Visit Provider Nurse Practitioner Family
DX: K82.8 Other specified diseases of gallbladder (principal); N28.1 Cyst of kidney, acquired; R10.11 Right upper quadrant pain
CPT/HCPCS: 76705

== ENCOUNTER 2023-12-25 07:25 | Emergency (ER) | payer MEDICAID, SELFPAY ==
[2023-12-25 07:30] VITALS: BP 121/78; PULSE 83; RESP 14; TEMP 36.9; O2SAT 96; BMI 29.2
--- NOTE | 2023-12-25 07:40 | ED_ITS ---
HPI - Alcohol 2 General: Chief Complaint: Alcohol Stated Complaint: ETOH Time Seen by Provider: 12/25/23 07:33 History of Present Illness: Patient brought in by EMS after being found intoxicated wandering apartment complex knocking on people's doors. Patient got aggressive with the police and EMS she was given 5 mg of IM Haldol and 120 mg of ketamine en route. She was restrained by EMS. Patient is lethargic and sedated upon arrival. Related Data Home Medications Medication Instructions Recorded Confirmed fluoxetine 20 mg capsule (Prozac) 40 mg PO DAILY 10/27/23 10/27/23 Previous Rx's Medication Instructions Recorded docusate sodium 100 mg capsule 100 mg PO BID #30 caps 09/22/23 (Colace) oxycodone-acetaminophen 5 mg-325 1 tab PO Q8H PRN pain 6 days #20 09/22/23 mg tablet (Percocet) tabs Allergies Allergy/AdvReac Type Severity Reaction Status Date / Time Alpha-Gal Allergy Severe ADR-Abdominal Verified 10/18/23 09:46 (Mqnlgtagu-Uhcuh-8,3-Gala Pain Review of Systems 2 General: Reports: 10 or more systems reviewed and unremarkable except in HPI and below PFSH ED 2 PFSH: Medical History Encounter for consultation for female sterilization Group B streptococcus urinary tract infection affecting 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 Tooth sensitivity Chronic sore throat Surgical History S/P H/O: Family History Grandmother Thyroid disease Denies family history of Ovarian cancer Diabetes Heart disease Breast cancer Hypertension Uterine cancer Stroke Social History Smoking and tobacco/nicotine status: never used tobacco/nicotine Physical Exam 2 Const: COMMON NORMALS: no acute distress, average body habitus, healthy appearing, alert and well nourished HENMT: COMMON NORMALS: normocephalic, atraumatic, hearing grossly normal bilaterally, external ears normal, Normal external nose present and moist oral mucous membranes HEAD & SCALP: normocephalic and atraumatic NOSE: Normal external nose present EXTERNAL EAR: Yes external ears normal Neck/C-Spine: COMMON NORMALS: no JVD Chest: COMMONS NORMALS: normal inspection of the chest and normal palpation of entire chest wall Resp: COMMON NORMALS: normal respiratory effort, No retractions, No use of accessory muscles and clear to auscultation bilaterally AUSCULTATION: clear to auscultation bilaterally Cardio: COMMON NORMALS: no JVD, regular rate, regular rhythm, S1 normal heart sound present, S2 normal heart sound present, No gallops present (Cardio), No clicks present (Cardio), No murmurs present (Cardio) and No rub (Cardio) R ATE: regular rate RHYTHM: regular rhythm HEART SOUNDS: S1 normal heart sound present and S2 normal heart sound present GI: COMMON NORMALS: Normal to inspection, nondistended, normoactive bowel sounds present, Soft to palpation, non-tender, No hepatosplenomegaly present and no masses PALPATION: Yes Soft to palpation and Yes No hepatosplenomegaly present Neuro: SENSORIUM/ORIENTATION: Yes alert Course 2 Vital Signs: Vital signs: Vital Signs Temperature 98.4 F 12/25/23 07:53 Pulse Rate 83 12/25/23 07:53 Respiratory Rate 14 12/25/23 07:53 Blood Pressure 121/78 12/25/23 07:53 Pulse Oximetry 96 12/25/23 07:53 Oxygen Delivery Me thod Room Air 12/25/23 07:53 MDM - Alcohol Medical Decision Making Motor was obtained and patient patient was allowed to sleep during her stay here. When patient woke up she was alert oriented coherent and will be diagnosed with a discharge of alcohol intoxication. Medical Records I reviewed the patient's medical records. Lab Data I reviewed the patient's lab results. 12/25/23 07:48 12/25/23 08:17 Laboratory Results WBC 13.72 10^3/uL (3.29-11.43) H 12/25/23 07:48 RBC 4.11 10^6/uL (3.85-5.65) 12/25/23 07:48 Hgb 13.00 g/dL (11.27-16.99) 12/25/23 07:48 Hct 39.9 % (36-47) 12/25/23 07:48 MCV 97.1 fl (85-98) 12/25/23 07:48 MCH 31.6 pg (27-33) 12/25/23 07:48 MCHC 32.6 g/dL (30-55) 12/25/23 07:48 RDW 15.5 % (12.1-15.1) H 12/25/23 07:48 Plt Count 311 10^3/cmm (157-399) 12/25/23 07:48 MPV 11.4 fL (7.4-10.4) H 12/25/23 07:48 Neut % (Auto) 57.7 % 12/25/23 07:48 Lymph % (Auto) 34.9 % 12/25/23 07:48 Benton % (Auto) 4.8 % 12/25/23 07:48 Eos % (Auto) 1.7 % 12/25/23 07:48 Baso % (Auto) 0.4 % 12/25/23 07:48 Neut # (Auto) 7.90 10^3/uL (1.8-7.7) H 12/25/23 07:48 Lymph # (Auto) 4.8 10^3/uL (0.8-4.8) 12/25/23 07:48 Benton # (Auto) 0.7 10^3/uL (0.2-0.9) 12/25/23 07:48 Eos # (Auto) 0.2 10^3/uL (0.0-0.8) 12/25/23 07:48 Baso # (Auto) 0.1 10^3/uL (0.0-0.1) 12/25/23 07:48 Nucleated RBC % (auto) 0 % 12/25/23 07:48 Nucleated RBCs # 0.0 /100WBC 12/25/23 07:48 Sodium 143 mmol/L (136-145) 12/25/23 08:17 Potassium 4.0 mmol/L (3.5-5.1) 12/25/23 08:17 Chloride 105 mmol/L (98-107) 12/25/23 08:17 Carbon Dioxide 24 mmol/L (22-29) 12/25/23 08:17 Anion Gap 18.0 (5-19) 12/25/23 08:17 BUN 4 mg/dL (6-20) L 12/25/23 08:17 Creatinine 0.6 mg/dL (0.5-0.9) 12/25/23 08:17 GFR Calculation 114.4 mL/min (90-130) 12/25/23 08:17 Glucose 96 mg/dL (65-115) 12/25/23 08:17 Calculated Osmolality 293 mOsm/kg (285-295) 12/25/23 08:17 Calcium 8.5 mg/dL (8.5-10.5) 12/25/23 08:17 Total Bilirubin 0.2 mg/dL (0.15-1.2) 12/25/23 08:17 AST 29 U/L (0-32) 12/25/23 08:17 ALT 35 U/L (0-33) H 12/25/23 08:17 Alkaline Phosphatase 79 U/L (35-105) 12/25/23 08:17 Total Protein 7.4 g/dL (6.6-8.7) 12/25/23 08:17 Albumin 4.4 g/dL (3.5-5.2) 12/25/23 08:17 Globulin 3.0 g/dL (1.3-4.6) 12/25/23 08:17 Ethyl Alcohol 105 mg/dL (0-10) H 12/25/23 08:17 No radiology studies performed this visit Discharge Plan Discharge Patient Disposition: Home Clinical Impression: Alcoholic intoxication Qualifiers: Complication of substance-induced condition: uncomplicated Qualified Code(s): F 10.920 - Alcohol use, unspecified with intoxication, uncomplicated Condition: Stable Prescriptions: No Action fluoxetine [Prozac] 20 mg capsule 40 mg PO DAILY oxycodone-acetaminophen [Percocet] 5-325 mg tablet 1 tab PO Q8H PRN (Reason: pain) 6 Days Qty: 20 0RF docusate sodium [Colace] 100 mg capsule 100 mg PO BID Qty: 30 2RF Discharge Orders: Discharge ED (Routine); Ordered 12/25/23 Ordered By: Wilfredo Carcamo Referrals: Ashley Rodriguez NP [Primary Care Provider] - 1 week Patient Instructions: Alcohol Intoxication (DC) Activity Restrictions/Additional Instructions: Thank you for choosing [facility] for your healthcare needs today. Please realize that you were seen in the emergency department and that we are providing you with an emergency medical screening exam and this may not be a complete and all exclusive of all testing and/or medical workup we may need to determine your element or severity of your illness. It is very important that you follow-up as instructed with your primary care provider or specialist for the additional evaluation and to discuss your medical treatment plan. You may return to the emergency department should you have concerns or if your condition changes or worsens in any way. Coding Level of Care Code ED Belt Knife Feeder for Prerna Hugo
[2023-12-25 07:53] VITALS: BP 121/78; PULSE 83; RESP 14; TEMP 36.9; O2SAT 96
[2023-12-25 08:06] LABS: Basophils # 0.1 10^3/uL (0.0-0.1); Basophils % 0.4 %; Eosinophils # 0.2 10^3/uL (0.0-0.8); Eosinophils % 1.7 %; Hematocrit 39.9 % (36-47); Lymphocytes # 4.8 10^3/uL (0.8-4.8); Lymphocytes % 34.9 %; Mean Corpuscular HGB Conc 32.6 g/dL (30-55); Mean Corpuscular Hemoglobin 31.6 pg (27-33); Mean Corpuscular Volume 97.1 fl (85-98); Mean Platelet Volume 11.4 fL (7.4-10.4); Monocytes # 0.7 10^3/uL (0.2-0.9); Monocytes % 4.8 %; Neutrophils % 57.7 %; Nucleated Red Blood Cells % 0 %; Platelet Count 311 10^3/cmm (157-399); Red Blood Count 4.11 10^6/uL (3.85-5.65); Red Cell Distribution Width 15.5 % (12.1-15.1); White Blood Count 13.72 10^3/uL (3.29-11.43)
[2023-12-25 08:42] LABS: Alanine Aminotransferase 35 U/L (0-33); Albumin Level 4.4 g/dL (3.5-5.2); Alcohol Level 105 mg/dL (0-10); Alkaline Phosphatase 79 U/L (35-105); Aspartate Amino Transferase 29 U/L (0-32); Blood Urea Nitrogen 4 mg/dL (6-20); Calcium 8.5 mg/dL (8.5-10.5); Carbon Dioxide 24 mmol/L (22-29); Chloride 105 mmol/L (98-107); Creatinine Clr Calc Pharmacy 123.2409; Glomerular Filtration Rate 114.4 mL/min (90-130); Glucose 96 mg/dL (65-115); Osmolality Calculated 293 mOsm/kg (285-295); Sodium 143 mmol/L (136-145); Total Bilirubin 0.2 mg/dL (0.15-1.2); Total Protein 7.4 g/dL (6.6-8.7)
--- NOTE | 2023-12-25 11:33 | PC.NURSE ---
PATIENT ALERT AND ORIENTED. PATIENT STABLE AND APPROPRIATE. PATIENT STATES THAT SHE NEEDS TO LEAVE TO BREASTFEED 3 MONTH OLD CHILD. PROVIDER NOTIFIED AND IS AGREEABLE TO DISCHARGE PATIENT.
== END 2023-12-25 11:34 | disposition home or self-care (01) ==
PROVIDERS: Emergency Provider Emergency Medicine; PCP Nurse Practitioner Family
DX: F10.920 Alcohol use, unspecified with intoxication, uncomplicated (principal)
CPT/HCPCS: 36415; 80053; 80307; 85025; 99283

== ENCOUNTER 2023-12-31 23:02 | Emergency (ER) | payer MEDICAID, SELFPAY ==
[2023-12-31 23:04] VITALS: BP 146/95; PULSE 101; RESP 16; TEMP 36.7; O2SAT 98; BMI 26.5
--- NOTE | 2024-01-01 00:11 | W.ED.EYEPROB ---
HPI - Eye Problem General: Chief complaint: Eye Problems Stated complaint: Left eye swollen trouble seeing Time Seen by Provider: 12/31/23 23:55 History of Present Illness: Patient is a 33-year-old female who presents to the emergency department with left thigh hordeolum. Onset of symptoms approximately 1 month ago. Patient states that it took several weeks but it did improve. Unfortunately the symptoms?eye swelling, pain has returned. She does have some periorbital involvement with redness and swelling. Related Data Home Medications Medication Instructions Recorded Confirmed fluoxetine 20 mg capsule (Prozac) 40 mg PO DAILY 10/27/23 10/27/23 Previous Rx's Medication Instructions Recorded docusate sodium 100 mg capsule 100 mg PO BID #30 caps 09/22/23 (Colace) oxycodone-acetaminophen 5 mg-325 1 tab PO Q8H PRN pain 6 days #20 09/22/23 mg tablet (Percocet) tabs doxycycline hyclate 100 mg 100 mg PO BID 7 days #14 tabs 01/01/24 tablet,delayed release Allergies Allergy/AdvReac Type Severity Reaction Status Date / Time Alpha-Gal Allergy Severe ADR-Abdominal Verified 10/18/23 09:46 (Uilmuxcta-Wqojk-5,3-Gala Pain Review of Systems General: Reports: 10 or more systems reviewed and unremarkable except in HPI and below PFSH ED PFSH: Medical History Encounter for consultation for female sterilization Group B streptococcus urinary tract infection affecting 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 Tooth sensitivity Chronic sore throat Surgical History S/P H/O: Family History Grandmother Thyroid disease Denies family history of Ovarian cancer Diabetes Heart disease Breast cancer Hypertension Uterine cancer Stroke Social History Smoking and tobacco/nicotine status: never used tobacco/nicotine Physical Exam Const: COMMON NORMALS: no acute distress GENERAL APPEARANCE: cooperative ORIENTATION/CONSCIOUSNESS: Yes awake HENMT: COMMON NORMALS: normocephalic and atraumatic HEAD & SCALP: normocephalic and atraumatic FACE & SINUS: normal facial exam MOUTH: Normal oral and palatal mucosa present THROAT: posterior oropharynx normal Eye: COMMON NORMALS: Equal, round and reactive pupils present, EOMs intact bilaterally, conjunctivae normal and no scleral icterus GENERAL EYE: appearance normal, both eyes and all related structures ALIGNMENT: Yes alignment normal PERIORBITAL: periorbital findings abnormal positive left periorbital swelling, periorbital tenderness, periorbital erythema and other (hordeolum ) EYELID: eyelid abnormality left upper eyelid inflamed cyst internal lid, lid margins crusty/scaly, swelling and tenderness CONJUNCTIVA: Yes conjunctivae normal PUPIL: Yes Equal, round and reactive pupils present Resp: COMMON NORMALS: normal respiratory effort, No retractions and No use of accessory muscles EFFORT & INSPECTION: Yes able to speak in complete sentences and Yes symmetric chest movement Cardio: COMMON NORMALS: regular rate and Peripheral pulses 2+ throughout RATE: regular rate PERIPHERAL PULSES: Peripheral pulses 2+ throughout Course Vital Signs: Vital signs: Vital Signs Temperature 98.0 F 12/31/23 23:04 Pulse Rate 101 H 12/31/23 23:04 Respiratory Rate 16 12/31/23 23:04 Blood Pressure 146/95 12/31/23 23:04 Pulse Oximetry 98 12/31/23 23:04 Oxygen Delivery Me thod Room Air 12/31/23 23:04 MDM - Eye Problem Medical Decision Making Patient is a 33-year-old female that presents with a hordeolum to the left eye. Patient was instructed to use warm compresses for 10 minutes 4 times a day. Also going to start her on doxycycline since she has periorbital involvement. Patient is actively breast-feeding her daughter. I advised her that while taking doxycycline she should avoid breast-feeding. Patient is going to follow-up with Dr. Marks, ophthalmology, if she does not significantly improve No radiology studies performed this visit Discharge Plan Discharge Patient Disposition: Home Clinical Impression: Hordeolum Condition: Stable Prescriptions: New doxycycline hyclate 100 mg tablet,delayed release (DR/EC) 100 mg PO BID 7 Days Qty: 14 0RF No Action fluoxetine [Prozac] 20 mg capsule 40 mg PO DAILY oxycodone-acetaminophen [Percocet] 5-325 mg tablet 1 tab PO Q8H PRN (Reason: pain) 6 Days Qty: 20 0RF docusate sodium [Colace] 100 mg capsule 100 mg PO BID Qty: 30 2RF Discharge Orders: Discharge ED (Routine); Ordered 01/01/24 Ordered By: Eddie Geiger Referrals: Ashley Rodriguez NP [Primary Care Provider] - Cr Marks [Physician] - Noam Marks MD [Physician] - Discharge Diet: Advance as tolerated Discharge Activity: Resume usual activity Patient Instructions: Opioid Safety, Pain Management, Stye (Hordeolum) Activity Restrictions/Additional Instructions: Please take antibiotics as prescribed Please follow-up with ophthalmology. We have a choice between Cr Marks. Please return to the emergency department as needed for new, concerning, worsening symptoms Coding Level of Care Code ED Raw Material Handler for Prerna Hugo
[2024-01-01] MEDS: doxycycline 100 mg Tablet PO (00:41)
== END 2024-01-01 00:46 | disposition home or self-care (01) ==
PROVIDERS: Emergency Provider Nurse Practitioner; PCP Nurse Practitioner Family
DX: H00.016 Hordeolum externum left eye, unspecified eyelid (principal)
CPT/HCPCS: 99283

== ENCOUNTER → 2024-04-30 14:30 | Outpatient (BNVA) | payer MEDICAID, SELFPAY | PROVIDERS: Visit Provider Nurse Practitioner Family | DX: B37.31 Acute candidiasis of vulva and vagina (principal) | CPT/HCPCS: 81513; 87481; 87491; 87591; 87661 ==

== ENCOUNTER 2024-08-13 07:48 | Emergency (ER) | payer MEDICAID, SELFPAY ==
[2024-08-13 08:11] VITALS: BP 131/92; PULSE 72; RESP 16; TEMP 36.9; O2SAT 98
--- NOTE | 2024-08-13 08:26 | W.ED.GENADLT ---
HPI - General Adult General: Chief complaint: General Medical Stated complaint: sore throat Time Seen by Provider: 08/13/24 07:50 History of Present Illness: 33-year-old female presents to the emergency room with complaint of sore throat and yeast infection. She states this is due to her cheating on her. Patient was not asked to be seen and she had come to the nurse station wanted to leave AGAINST MEDICAL ADVICE. She declined treatment advised her I would see her next she refused and signed out. Related Data Home Medications ?Medication ?Instructions ?Recorded ?Confirmed fluoxetine 20 mg capsule (Prozac) 40 mg PO DAILY 10/27/23 04/30/24 Previous Rx's ?Medication ?Instructions ?Recorded docusate sodium 100 mg capsule 100 mg PO BID #30 caps 09/22/23 (Colace) amitriptyline 25 mg tablet 25 mg PO DAILY 30 days #30 tabs 04/30/24 fluconazole 150 mg tablet 150 mg PO Q3D #2 tabs 04/30/24 metronidazole 500 mg tablet 500 mg PO BID 7 days #14 tabs 05/03/24 cyclobenzaprine 5 mg tablet See Rx Instructions .Route 07/19/24 .COMPLEX #30 tabs Allergies Allergy/AdvReac Type Severity Reaction Status Date / Time Alpha-Gal Allergy Severe ADR-Abdominal Verified 10/18/23 09:46 (Puqfjpwth-Dbtua-2,3-Gala Pain [facility] PFSH: Medical History Encounter for consultation for female sterilization Group B streptococcus urinary tract infection affecting 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 Tooth sensitivity Chronic sore throat Surgical History S/P H/O: Family History Grandmother Thyroid disease Denies family history of Ovarian cancer Diabetes Heart disease Breast cancer Hypertension Uterine cancer Stroke Social History Smoking and tobacco/nicotine status: never used tobacco/nicotine Physical Exam Const: COMMON NORMALS: no acute distress GENERAL APPEARANCE: cooperative and comfortable ORIENTATION/CONSCIOUSNESS: Yes awake, Yes oriented to person, Yes oriented to place and Yes oriented to time HENMT: COMMON NORMALS: normocephalic, atraumatic and hearing grossly normal bilaterally HEAD & SCALP: normocephalic and atraumatic Resp: COMMON NORMALS: normal respiratory effort and No retractions Neuro: SENSORIUM/ORIENTATION: Yes oriented to person, Yes oriented to place and Yes oriented to time Course Vital Signs: Vital signs: Vital Signs Temperature 98.4 F 08/13/24 08:11 Pulse Rate 72 08/13/24 08:11 Respiratory Rate 16 08/13/24 08:11 Blood Pressure 131/92 08/13/24 08:11 Pulse Oximetry 98 08/13/24 08:11 Oxygen Delivery Me thod Room Air 08/13/24 08:11 MDM - General Adult Medical Decision Making Patient chose to leave AMA we had advised her she can return at any point if she wishes. No radiology studies performed this visit Discharge Plan Discharge Patient Disposition: Left Against Medical Advice Clinical Impression: Pharyngitis Condition: Stable Prescriptions: No Action amitriptyline 25 mg tablet 25 mg PO DAILY 30 Days Qty: 30 2RF fluconazole 150 mg tablet 150 mg PO Q3D Qty: 2 0RF fluoxetine [Prozac] 20 mg capsule 40 mg PO DAILY docusate sodium [Colace] 100 mg capsule 100 mg PO BID Qty: 30 2RF metronidazole 500 mg tablet 500 mg PO BID 7 Days Qty: 14 0RF cyclobenzaprine 5 mg tablet See Rx Instructions .ROUTE .COMPLEX Qty: 30 0RF Dose Instruction: TAKE ONE TABLET BY MOUTH TWICE DAILY NEEDED FOR muscle SPASMS Rx Instructions: TAKE ONE TABLET BY MOUTH TWICE DAILY NEEDED FOR muscle SPASMS Print Language: Macanese Coding Level of Care Code ED Residence Director for Prerna Hugo
== END 2024-08-13 08:34 | disposition left against medical advice (07) ==
PROVIDERS: Emergency Provider Family Medicine
DX: J02.9 Acute pharyngitis, unspecified (principal)
CPT/HCPCS: 81000; 87071; 87491; 87591; 87661; 87880; 99283

== ENCOUNTER 2024-08-25 16:23 | Emergency (ER) | payer MEDICAID, SELFPAY ==
--- OUTSIDE RECORDS SUMMARY | 2024-08-25 16:27 | XMS_ITS | Patient Health Record ---
Author Organization [facility] Address [address] [id number] Care Team Providers Care Rock Picker Name Role Phone Non [facility] Provider, Provider Primary Care P miguel Unavailable Kathi Smith Unavailable [phone] Allergies Allergen (clinical drug ingredient) Drug/Non Drug Allergy documented on EMR Reaction Allergy Type Onset Date Status Iodine Anaphulaxis-Neom ycin Drug Allergy Active Reason For Referral No Information Medications Medication SIG (Take, Route, Frequency, Duration) Notes Start Date End Date Status Latuda 40 MG 1 tablet in the evening with food Orally Once a day Not-Taking Ibuprofen 800 MG 1 tablet with food or milk as needed Orally every 8 hrs for 10 days 01/07/2022 Active DULoxetine HCl 40 MG 1 capsule Orally Once a day for 30 days 09/29/2018 Not-Taking Citalopram Hydrobromide 10 MG 1 tablet Orally Once a day for 30 day(s) 05/12/2022 Active EPINEPHrine 0.3 MG/0.3ML as directed Injection 0.3 mg SC/IM x1, may repeat dose x1 after 5-15 minutes for 30 days 10/23/2019 Not-Taking Cyclobenzaprine HCl 10 MG TAKE 1 TABLET BY MOUTH ONCE A DAY AT BEDTIME NEEDED for 30 days Active HYDROcodone-Acetaminop hen 5-325 MG Oral for 2 Not-Taking Ibuprofen 200 MG 1 tablet with food or milk as needed Orally Three times a day PRN Active busPIRone HCl 5 MG 1tablet Orally three times a day (tid) for 30 days 06/06/2019 Not-Taking Strattera 40 MG 1 capsule in the morning Orally Once a day Active Fluticasone Propionate 50 MCG/ACT 1 spray in each nostril Nasally Once a day for 30 day(s) PRN 08/01/2020 Not-Taking Albuterol Sulfate HFA 108 (90 Base) MCG/ACT 2 puffs as needed Inhalation every 4 hrs for 30 days 09/08/2021 Active traMADol HCl 50 MG 1 tablet Orally Once a day as needed for pain for 20 days 06/06/2019 Not-Taking ARIPiprazole 15 MG 2 tablet Orally once a day for 30 days Not-Taking buPROPion HCl ER (Smoking Det) 150 MG 1 tablet Orally twice a day for 30 day(s) Pt out of medcation 09/17/2020 Not-Taking Prazosin HCl 1 MG 1 capsule at bedtime Orally Once a day for 30 day(s) Not-Taking Tri-Sprintec 0.18/0.215/0.25 MG-35 MCG TAKE 1 TABLET BY MOUTH ONCE DAILY for 30 days Not-Taking Pepcid 20 MG 1 tablet as needed Orally Once a day for 30 day(s) 11/16/2019 Not-Taking Immunizations Vaccine Route Administration Date Status Comme nts Coronavirus Moderna #2 Unknown 01/01/2021 Administered [facility] Coronavirus Moderna #1 Unknown 12/04/2020 Administered [facility] Social History Tobacco Use: Social History Observation Description Date Details (start date - stop date) Current Smoker NA - NA Sex Assigned At : Social History Observation Description Sex Assigned At Female - Question Answer Notes Did you have a drink containing alcohol in the p ast year? No Points 0 Interpretation Negative [facility] Drug Questionnaire Question Answer Notes Have you used drugs other th an those for medical reasons in the past 12 months? No Do you smoke for age 13 and up Question Answer Notes Are you a: current smoker How often do you smoke cigarettes? every day How many cigarettes a day do you smoke? 6-10 How soon after you wake up d o you smoke your first cigarette? within 5 minutes Are you interested in quitting? Thinking about q uitting Smokeless Tobacco Question Answer Notes Tobacco use other than smoking Yes v ape Have you ever had an STD Question Answer Notes Have you ever had an STD Yes Trichom onias Prevention Strategies Discussed Condoms Problems Problem Type SNOMED Code ICD Code Onset Dates Problem Status W/U Status Risk Notes Problem 04066382 PTSD (post-traumatic stress disorder) (F43.10) Active confirmed Problem Arthritis (0008385) Arthritis (M19.90) Active confirmed Problem 733510437 Menorrhagia with regular cycle (N92.0) Active confirmed Problem Fibromyalgia (148670365) Fibromyalgia (M79.7) Active confirmed Problem 00014076 Cervicalgia (M54.2) Active confirmed Problem 470779584 Bipolar 1 disorder (F31.9) Active confirmed Problem 697375044 Seasonal allergies (J30.2) Active confirmed Problem 46505779 SONYA (generalized anxiety disorder) (F41.1) Active confirmed Problem 75279017 Missed period (N92.6) Active confirmed Problem 11627613 Chronic fatigue (R53.82) Active confirmed Problem 92061764 Cigarette nicotine dependence without complication (F17.210) Active confirmed Problem 992601932 Panic disorder (F41.0) Active confirmed Problem 508804679 Mixed stress and 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) Active confirmed Problem 671372324 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,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 Problem Gastroesophageal reflux disease (362011776) GERD (gastroesophage al reflux disease) (K21.9) Inactive confirmed Problem 84254036 Dental caries (K02.9) Inactive confirmed Problem Depression with anxiety (F41.8) Inactive confirmed Problem 386716385 Right sided abdominal pain (R10.9) Problem resolved confirmed Problem 06788480 Slow transit constipation (K59.01) Problem resolved confirmed Plan Of Treatment No Information Medications Administered Medication Instructions Date of Administration Dosage Notes Bicillin LA 1,200,000 10/31/2018 1.2 units Decadron LA 8mg 11/07/2018 8 mg Decadron SA 4mg/ml (dexamethasone) 11/07/2018 4 mg Depo-Provera 08/12/2020 1 mL Lot # [id number] Ex Date: 2024 Depo-Provera 10/31/2020 150 mg Medical (General) History Medical History History ICD Code Allergic rhinitis J30.9 Anxiety disorder depression bipolar PTSD panic disorder tick allergy, apha-gal Right sided abdominal pain (resolved 12/2021) Slow transit constipation (resolved 06/28) Surgical History Surgery Date(Month/Year) x 2 2014 Hospitalization History Reason Date(Month/Year) urgent care visit for infected 3rd finge r 07/03/19 emergency room visit for abdominal pain 09/25/18 csection x2
[2024-08-25 16:37] VITALS: BP 158/92; PULSE 101; RESP 20; TEMP 36.7; O2SAT 98; BMI 23.8
--- NOTE | 2024-08-25 16:46 | USR_ITS ---
PROCEDURE INFORMATION: Exam: US Abdomen, Limited; Right Upper Quadrant Exam date and time: 08/25/2024 4:59 PM Age: 33 years old Clinical indication: Abdominal pain; Acute; Additional info: Ruq pain n/v TECHNIQUE: Imaging protocol: Real time ultrasound of the abdomen with image documentation. Limited exam focused on the right upper quadrant. COMPARISON: US gall bladder [id number] 11/14/2023 7:49 AM FINDINGS: Liver: Normal. No masses. Gallbladder: Gallbladder wall thickening but may be related to underdistention. However there is a positive Villasenor's sign. No definite gallstones Biliary ducts: Common bile duct measures up to 6 mm and is mildly dilated. Pancreas: Visualized pancreas is unremarkable. Right kidney: Right renal cysts. No right-sided hydronephrosis. The right kidney measures up to 11.6 cm. US/US gall bladder [id number] IMPRESSION: No definite gallstones. However positive Villasenor's sign as well as a dilated CBD. The patient may benefit from a follow up MRCP examination.
--- NOTE | 2024-08-25 16:56 | W.ED.ABDPA2 ---
Documented by User: Boone Garcia MD 08/25/24 18:00 HPI - Abdominal Pain General: Chief Complaint: Abdominal Pain Stated Complaint: low rt abd pain Time Seen by Provider: 08/25/24 16:46 History of Present Illness: 33-year-old female with a history of biliary colic and gallbladder wall thickening presents emergency department. She states she ate at 330 and about 30 minutes later started having colicky pain that felt like a sharp kicking sensation up under her right rib cage. No pain in the right flank. No radiation to the right shoulder. She did have nausea. She reports the pain was coming every 5 minutes initially and now is about every 10 minutes. She reports her pain is improving but still present. She denies any abnormal stools. She does not feel like she has any dysuria or hematuria. Related Data Home Medications ?Medication ?Instructions ?Recorded ?Confirmed fluoxetine 20 mg capsule (Prozac) 40 mg PO DAILY 10/27/23 08/13/24 Previous Rx's ?Medication ?Instructions ?Recorded docusate sodium 100 mg capsule 100 mg PO BID #30 caps 09/22/23 (Colace) amitriptyline 25 mg tablet 25 mg PO DAILY 30 days #30 tabs 04/30/24 fluconazole 150 mg tablet 150 mg PO Q3D #2 tabs 04/30/24 metronidazole 500 mg tablet 500 mg PO BID 7 days #14 tabs 05/03/24 cyclobenzaprine 5 mg tablet See Rx Instructions .Route 07/19/24 .COMPLEX #30 tabs fluconazole 150 mg tablet 150 mg PO Q3D 2 doses #2 tabs 08/13/24 Allergies Allergy/AdvReac Type Severity Reaction Status Date / Time Alpha-Gal Allergy Severe ADR-Abdominal Verified 08/13/24 10:54 (Woykjjznd-Xjapd-7,3-Gala Pain Review of Systems General: Reports: 10 or more systems reviewed and unremarkable except in HPI and below PFSH ED PFSH: Medical History Encounter for consultation for female sterilization Group B streptococcus urinary tract infection affecting 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 Tooth sensitivity Chronic sore throat Surgical History S/P H/O: Family History Grandmother Thyroid disease Denies family history of Ovarian cancer Diabetes Heart disease Breast cancer Hypertension Uterine cancer Stroke Social History Smoking and tobacco/nicotine status: never used tobacco/nicotine Physical Exam Const: COMMON NORMALS: no limitations, alert and well nourished EXAM LIMITATIONS: no altered mental status HENMT: COMMON NORMALS: normocephalic, atraumatic and external ears normal HEAD & SCALP: normocephalic and atraumatic EXTERNAL EAR: Yes external ears normal MOUTH: no muffled voice Eye: COMMON NORMALS: EOMs intact bilaterally, conjunctivae normal and no scleral icterus CONJUNCTIVA: Yes conjunctivae normal Neck/C-Spine: COMMON NORMALS: no JVD GENERAL: Yes normal visual inspection and Yes trachea midline Resp: COMMON NORMALS: normal respiratory effort, No use of accessory muscles and clear to auscultation bilaterally AUSCULTATION: clear to auscultation bilaterally Cardio: COMMON NORMALS: no JVD, regular rate and regular rhythm RATE: regular rate RHYTHM: regular rhythm GI: COMMON NORMALS: Soft to palpation PALPATION: Yes Soft to palpation, Yes Tenderness to palpation present (GI) Details: RUQ and No Guarding due to palpation present (GI) OTHER: No CVA percussion tenderness. Extremity: COMMON NORMALS: normal to inspection Neuro: COMMON NORMALS: moves all extremities, no focal motor deficits and no sensory deficits noted SENSORIUM/ORIENTATION: Yes alert SPEECH: speech normal Psych: COMMON NORMALS: mental status grossly normal, Normal thought process present, cooperative, normal affect and speech normal SPEECH: Yes normal speech THOUGHT PROCESS: Normal thought process present Skin: COMMON NORMALS: no rashes or lesions noted, turgor normal and no jaundice GENERAL SKIN EXAM: no rashes or lesions noted and turgor normal Course Vital Signs: Vital signs: Vital Signs Temperature 98.1 F 08/25/24 16:37 Pulse Rate 101 H 08/25/24 16:37 Respiratory Rate 20 H 08/25/24 16:37 Blood Pressure 158/92 08/25/24 16:37 Pulse Oximetry 98 08/25/24 16:37 Oxygen Delivery Me thod Room Air 08/25/24 16:37 MDM - Abdominal Pain Medical Decision Making Right upper quadrant pain with nausea 30 minutes after eating. History of biliary colic. Never followed up for cholecystectomy or HIDA scan in the past. Patient reports pain is improving but not resolved. Pain is coming in slower waves of about every 10 minutes now. We will obtain a right upper quadrant ultrasound, lipase, CMP, CBC. Will provide anticholinergic antimuscarinic, NSAID, low-dose opiate, Zofran for symptom control. No CVA percussion tenderness. Patient does not think she has a UTI. Update Patient has decided to leave AGAINST MEDICAL ADVICE at 1757. The ultrasound of her gallbladder is not back. Her CMP is not back. Her LFTs are not back. Her lipase is not back. Lab Data 08/25/24 17:33 08/25/24 17:33 Labs/Radiology: Laboratory Results WBC 10.52 10^3/uL (3.29-11.43) 08/25/24 17:33 RBC 3.84 10^6/uL (3.85-5.65) L 08/25/24 17:33 Hgb 12.70 g/dL (11.27-16.99) 08/25/24 17:33 Hct 37.3 % (36-47) 08/25/24 17:33 MCV 97.1 fl (85-98) 08/25/24 17:33 MCH 33.1 pg (27-33) H 08/25/24 17:33 MCHC 34.0 g/dL (30-55) 08/25/24 17:33 RDW 14.5 % (12.1-15.1) 08/25/24 17:33 Plt Count 294 10^3/cmm (157-399) 08/25/24 17:33 MPV 9.7 fL (7.4-10.4) 08/25/24 17:33 Neut % (Auto) 52.3 % 08/25/24 17:33 Lymph % (Auto) 41.8 % 08/25/24 17:33 Gregg % (Auto) 5.0 % 08/25/24 17:33 Eos % (Auto) 0.1 % 08/25/24 17:33 Baso % (Auto) 0.5 % 08/25/24 17:33 Neut # (Auto) 5.50 10^3/uL (1.8-7.7) 08/25/24 17:33 Lymph # (Auto) 4.4 10^3/uL (0.8-4.8) 08/25/24 17:33 Gregg # (Auto) 0.5 10^3/uL (0.2-0.9) 08/25/24 17:33 Eos # (Auto) 0.0 10^3/uL (0.0-0.8) 08/25/24 17: Baso # (Auto) 0.1 10^3/uL (0.0-0.1) 08/25/24 17:33 Nucleated RBC % (auto) 0 % 08/25/24 17: Nucleated RBCs # 0.0 /100WBC 08/25/24 17:33 Sodium 140 mmol/L (136-145) 08/25/24 17:33 Potassium 4.0 mmol/L (3.5-5.1) 08/25/24 17:33 Chloride 100 mmol/L (98-107) 08/25/24 17:33 Carbon Dioxide 26 mmol/L (22-29) 08/25/24 17:33 Anion Gap 18.0 (5-19) 08/25/24 17:33 BUN 12 mg/dL (6-20) 08/25/24 17:33 Creatinine 0.8 mg/dL (0.5-0.9) 08/25/24 17:33 GFR Calculation 82.1 mL/min (90-130) L 08/25/24 17:33 Glucose 83 mg/dL (65-115) 08/25/24 17:33 Calculated Osmolality 289 mOsm/kg (285-295) 08/25/24 17:33 Calcium 8.7 mg/dL (8.5-10.5) 08/25/24 17:33 Total Bilirubin 0.2 mg/dL (0.15-1.2) 08/25/24 17:33 AST 13 U/L (0-32) 08/25/24 17:33 ALT 12 U/L (0-33) 08/25/24 17:33 Alkaline Phosphatase 70 U/L (35-105) 08/25/24 17:33 Total Protein 6.4 g/dL (6.6-8.7) L 08/25/24 17:33 Albumin 3.9 g/dL (3.5-5.2) 08/25/24 17:33 Globulin 2.5 g/dL (1.3-4.6) 08/25/24 17:33 Lipase 26 U/L (13-60) 08/25/24 17:33 HCG, Qual Negative (Negative) 08/25/24 17:33 XR interpretation done by ED provider, pending radiology final review (Patient did not stay for review of imaging. Ultrasound was performed but is not yet back.) Discharge Plan Discharge Patient Disposition: Left Against Medical Advice Clinical Impression: Right upper quadrant abdominal pain Condition: Stable Prescriptions: No Action amitriptyline 25 mg tablet 25 mg PO DAILY 30 Days Qty: 30 2RF fluconazole 150 mg tablet 150 mg PO Q3D Qty: 2 0RF fluconazole 150 mg tablet 150 mg PO Q3D Qty: 2 0RF fluoxetine [Prozac] 20 mg capsule 40 mg PO DAILY docusate sodium [Colace] 100 mg capsule 100 mg PO BID Qty: 30 2RF metronidazole 500 mg tablet 500 mg PO BID 7 Days Qty: 14 0RF cyclobenzaprine 5 mg tablet See Rx Instructions .ROUTE .COMPLEX Qty: 30 0RF Dose Instruction: TAKE ONE TABLET BY MOUTH TWICE DAILY NEEDED FOR muscle SPASMS Rx Instructions: TAKE ONE TABLET BY MOUTH TWICE DAILY NEEDED FOR muscle SPASMS Referrals: Ashley Lambert FNP [Primary Care Provider, Family Practice] Patient Instructions: Abdominal Pain (ED) Activity Restrictions/Additional Instructions: You have chosen to leave prior to the resolution of your workup. You still have pending labs and imaging. Therefore I cannot tell you whether you have an emergency medical condition. If you continue to have pain or your symptoms worsen, you are invited to return to the emergency department at any time. Print Language: Norwegian Coding Level of Care Code ED Line Installer Repairer for Chg Fwd Documented by User: Leon Metcalf DO 08/25/24 18:30 HPI - Abdominal Pain General: Chief Complaint: Abdominal Pain Stated Complaint: low rt abd pain Time Seen by Provider: 08/25/24 16:46 Related Data Home Medications ?Medication ?Instructions ?Recorded ?Confirmed fluoxetine 20 mg capsule (Prozac) 40 mg PO DAILY 10/27/23 08/13/24 Previous Rx's ?Medication ?Instructions ?Recorded docusate sodium 100 mg capsule 100 mg PO BID #30 caps 09/22/23 (Colace) amitriptyline 25 mg tablet 25 mg PO DAILY 30 days #30 tabs 04/30/24 fluconazole 150 mg tablet 150 mg PO Q3D #2 tabs 04/30/24 metronidazole 500 mg tablet 500 mg PO BID 7 days #14 tabs 05/03/24 cyclobenzaprine 5 mg tablet See Rx Instructions .Route 07/19/24 .COMPLEX #30 tabs fluconazole 150 mg tablet 150 mg PO Q3D 2 doses #2 tabs 08/13/24 Allergies Allergy/AdvReac Type Severity Reaction Status Date / Time Alpha-Gal Allergy Severe ADR-Abdominal Verified 08/13/24 10:54 (Dgfpanomc-Xfakl-1,3-Gala Pain [facility] ED PFSH: Medical History Encounter for consultation for female sterilization Group B streptococcus urinary tract infection affecting 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 Tooth sensitivity Chronic sore throat Surgical History S/P H/O: Family History Grandmother Thyroid disease Denies family history of Ovarian cancer Diabetes Heart disease Breast cancer Hypertension Uterine cancer Stroke Social History Smoking and tobacco/nicotine status: never used tobacco/nicotine Course Vital Signs: Vital signs: Vital Signs Temperature 98.1 F 08/25/24 16:37 Pulse Rate 101 H 08/25/24 16:37 Respiratory Rate 20 H 08/25/24 16:37 Blood Pressure 158/92 08/25/24 16:37 Pulse Oximetry 98 08/25/24 16:37 Oxygen Delivery Me thod Room Air 08/25/24 16:37 MDM - Abdominal Pain Medical Decision Making Right upper quadrant pain with nausea 30 minutes after eating. History of biliary colic. Never followed up for cholecystectomy or HIDA scan in the past. Patient reports pain is improving but not resolved. Pain is coming in slower waves of about every 10 minutes now. We will obtain a right upper quadrant ultrasound, lipase, CMP, CBC. Will provide anticholinergic antimuscarinic, NSAID, low-dose opiate, Zofran for symptom control. No CVA percussion tenderness. Patient does not think she has a UTI. Update Patient has decided to leave AGAINST MEDICAL ADVICE at 1757. The ultrasound of her gallbladder is not back. Her CMP is not back. Her LFTs are not back. Her lipase is not back. Patient was in my signout queue but signed out AMA prior to checkout to me. Lab Data 08/25/24 17:33 08/25/24 17:33 Labs/Radiology: Laboratory Results WBC 10.52 10^3/uL (3.29-11.43) 08/25/24 17:33 RBC 3.84 10^6/uL (3.85-5.65) L 08/25/24 17:33 Hgb 12.70 g/dL (11.27-16.99) 08/25/24 17:33 Hct 37.3 % (36-47) 08/25/24 17:33 MCV 97.1 fl (85-98) 08/25/24 17:33 MCH 33.1 pg (27-33) H 08/25/24 17:33 MCHC 34.0 g/dL (30-55) 08/25/24 17:33 RDW 14.5 % (12.1-15.1) 08/25/24 17:33 Plt Count 294 10^3/cmm (157-399) 08/25/24 17:33 MPV 9.7 fL (7.4-10.4) 08/25/24 17:33 Neut % (Auto) 52.3 % 08/25/24 17:33 Lymph % (Auto) 41.8 % 08/25/24 17:33 Gregg % (Auto) 5.0 % 08/25/24 17:33 Eos % (Auto) 0.1 % 08/25/24 17:33 Baso % (Auto) 0.5 % 08/25/24 17:33 Neut # (Auto) 5.50 10^3/uL (1.8-7.7) 08/25/24 17:33 Lymph # (Auto) 4.4 10^3/uL (0.8-4.8) 08/25/24 17:33 Gregg # (Auto) 0.5 10^3/uL (0.2-0.9) 08/25/24 17:33 Eos # (Auto) 0.0 10^3/uL (0.0-0.8) 08/25/24 17:33 Baso # (Auto) 0.1 10^3/uL (0.0-0.1) 08/25/24 17:33 Nucleated RBC % (auto) 0 % 08/25/24 17:33 Nucleated RBCs # 0.0 /100WBC 08/25/24 17:33 Sodium 140 mmol/L (136-145) 08/25/24 17:33 Potassium 4.0 mmol/L (3.5-5.1) 08/25/24 17:33 Chloride 100 mmol/L (98-107) 08/25/24 17:33 Carbon Dioxide 26 mmol/L (22-29) 08/25/24 17:33 Anion Gap 18.0 (5-19) 08/25/24 17:33 BUN 12 mg/dL (6-20) 08/25/24 17:33 Creatinine 0.8 mg/dL (0.5-0.9) 08/25/24 17:33 GFR Calculation 82.1 mL/min (90-130) L 08/25/24 17:33 Glucose 83 mg/dL (65-115) 08/25/24 17:33 Calculated Osmolality 289 mOsm/kg (285-295) 08/25/24 17:33 Calcium 8.7 mg/dL (8.5-10.5) 08/25/24 17:33 Total Bilirubin 0.2 mg/dL (0.15-1.2) 08/25/24 17:33 AST 13 U/L (0-32) 08/25/24 17:33 ALT 12 U/L (0-33) 08/25/24 17:33 Alkaline Phosphatase 70 U/L (35-105) 08/25/24 17:33 Total Protein 6.4 g/dL (6.6-8.7) L 08/25/24 17:33 Albumin 3.9 g/dL (3.5-5.2) 08/25/24 17:33 Globulin 2.5 g/dL (1.3-4.6) 08/25/24 17:33 Lipase 26 U/L (13-60) 08/25/24 17:33 HCG, Qual Negative (Negative) 08/25/24 17:33 Discharge Plan Discharge Patient Disposition: Left Against Medical Advice Clinical Impression: Right upper quadrant abdominal pain Condition: Stable Prescriptions: No Action amitriptyline 25 mg tablet 25 mg PO DAILY 30 Days Qty: 30 2RF fluconazole 150 mg tablet 150 mg PO Q3D Qty: 2 0RF fluconazole 150 mg tablet 150 mg PO Q3D Qty: 2 0RF fluoxetine [Prozac] 20 mg capsule 40 mg PO DAILY docusate sodium [Colace] 100 mg capsule 100 mg PO BID Qty: 30 2RF metronidazole 500 mg tablet 500 mg PO BID 7 Days Qty: 14 0RF cyclobenzaprine 5 mg tablet See Rx Instructions .ROUTE .COMPLEX Qty: 30 0RF Dose Instruction: TAKE ONE TABLET BY MOUTH TWICE DAILY NEEDED FOR muscle SPASMS Rx Instructions: TAKE ONE TABLET BY MOUTH TWICE DAILY NEEDED FOR muscle SPASMS Referrals: Ashley Lambert FNP [Primary Care Provider, Family Practice] Patient Instructions: Abdominal Pain (ED) Activity Restrictions/Additional Instructions: You have chosen to leave prior to the resolution of your workup. You still have pending labs and imaging. Therefore I cannot tell you whether you have an emergency medical condition. If you continue to have pain or your symptoms worsen, you are invited to return to the emergency department at any time. Print Language: Norwegian Coding Level of Care Code ED Line Installer Repairer for Prerna Hugo
[2024-08-25] MEDS: ketorolac 30 mg/mL INJ 15 MG IVP (17:36)
[2024-08-25] MEDS: ondansetron 2 mg/ML SDV 2 mL 4 MG IVP (17:36)
[2024-08-25 17:45] LABS: Basophils # 0.1 10^3/uL (0.0-0.1); Basophils % 0.5 %; Eosinophils % 0.1 %; Hematocrit 37.3 % (36-47); Lymphocytes # 4.4 10^3/uL (0.8-4.8); Lymphocytes % 41.8 %; Mean Corpuscular Hemoglobin 33.1 pg (27-33); Mean Corpuscular Volume 97.1 fl (85-98); Mean Platelet Volume 9.7 fL (7.4-10.4); Monocytes # 0.5 10^3/uL (0.2-0.9); Neutrophils % 52.3 %; Nucleated Red Blood Cells % 0 %; Platelet Count 294 10^3/cmm (157-399); Red Blood Count 3.84 10^6/uL (3.85-5.65); Red Cell Distribution Width 14.5 % (12.1-15.1); White Blood Count 10.52 10^3/uL (3.29-11.43)
[2024-08-25 17:54] LABS: HCG Qualitative Urine. Negative (Negative)
[2024-08-25 18:06] LABS: Alanine Aminotransferase 12 U/L (0-33); Albumin Level 3.9 g/dL (3.5-5.2); Alkaline Phosphatase 70 U/L (35-105); Aspartate Amino Transferase 13 U/L (0-32); Blood Urea Nitrogen 12 mg/dL (6-20); Calcium 8.7 mg/dL (8.5-10.5); Carbon Dioxide 26 mmol/L (22-29); Chloride 100 mmol/L (98-107); Globulin 2.5 g/dL (1.3-4.6); Glomerular Filtration Rate 82.1 mL/min (90-130); Glucose 83 mg/dL (65-115); Lipase 26 U/L (13-60); Osmolality Calculated 289 mOsm/kg (285-295); Sodium 140 mmol/L (136-145); Total Bilirubin 0.2 mg/dL (0.15-1.2); Total Protein 6.4 g/dL (6.6-8.7)
== END 2024-08-25 18:04 | disposition left against medical advice (07) ==
PROVIDERS: Emergency Medicine; Emergency Provider Emergency Medicine; PCP Nurse Practitioner Family
DX: R10.11 Right upper quadrant pain (principal)
CPT/HCPCS: 76705; 80053; 81025; 83690; 85025; 96374; 96375; 99284; J1885; J2405

== ENCOUNTER → 2024-08-30 09:35 | Outpatient (BNVA) | payer MEDICAID, SELFPAY | PROVIDERS: PCP Nurse Practitioner Family; Visit Provider Nurse Practitioner Family | DX: N89.8 Other specified noninflammatory disorders of vagina (principal) | CPT/HCPCS: 81000; 81513; 87481; 87491; 87591; 87661 ==

== ENCOUNTER 2024-08-31 22:21 | Emergency (ER) | payer MEDICAID, SELFPAY ==
[2024-08-31 22:27] VITALS: BP 132/80; PULSE 119; RESP 16; TEMP 36.5; O2SAT 97; BMI 23.0
--- OUTSIDE RECORDS SUMMARY | 2024-08-31 22:27 | XMS_ITS | Patient Health Record ---
Author Organization [facility] Address [address] [place] [id number] Care Team Providers Care Grinder Setup Operator Name Role Phone Non [facility] Provider, Provider Primary Care P miguel Unavailable Kathi Smith Unavailable [phone] Allergies Allergen (clinical drug ingredient) Drug/Non Drug [...] Administration Date Status Comme nts Coronavirus Moderna #1 Unknown 12/04/2020 Administered [facility] Coronavirus Moderna #2 Unknown 01/01/2021 Administered [facility] Social History Tobacco Use: Social [...] Problem Status W/U Status Risk Notes Problem 77044351 PTSD (post-traumatic stress disorder) (F43.10) Active confirmed Problem Arthritis (5832910) Arthritis (M19.90) Active confirmed Problem 549660853 Menorrhagia with regular cycle (N92.0) Active confirmed Problem Fibromyalgia (490390930) Fibromyalgia (M79.7) Active confirmed Problem 33979547 Cervicalgia (M54.2) Active confirmed Problem 058138262 Bipolar 1 disorder (F31.9) Active confirmed Problem 241643124 Seasonal allergies (J30.2) Active confirmed Problem 46925667 SONYA (generalized anxiety disorder) (F41.1) Active confirmed Problem 12987282 Missed period (N92.6) Active confirmed Problem 43601229 Chronic fatigue (R53.82) Active confirmed Problem 43168479 Cigarette nicotine dependence without complication (F17.210) Active confirmed Problem 728268593 Panic disorder (F41.0) Active confirmed Problem 287977000 Mixed stress and 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) Active confirmed Problem 715416707 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,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 Problem Gastroesophageal reflux disease (962513408) GERD (gastroesophage al reflux disease) (K21.9) Inactive confirmed Problem 27051899 Dental caries (K02.9) Inactive confirmed Problem Depression with anxiety (F41.8) Inactive confirmed Problem 155758500 Right sided abdominal pain (R10.9) Problem resolved confirmed Problem 37562404 Slow transit constipation (K59.01) Problem resolved confirmed Plan Of Treatment No Information Medications Administered Medication Instructions Date of Administration Dosage Notes Bicillin LA 1,200,000 10/31/2018 1.2 units Decadron LA 8mg 11/07/2018 8 mg Decadron SA 4mg/ml (dexamethasone) 11/07/2018 4 mg Depo-Provera 08/12/2020 1 mL Lot # [id number] Ex Date: 2024 Depo-Provera 10/31/2020 150 mg [...]
== END 2024-08-31 23:12 | disposition left against medical advice (07) ==
LOC: ER 22:25
PROVIDERS: Emergency Provider Family Medicine; PCP Nurse Practitioner Family
DX: Z53.21 Procedure and treatment not carried out due to patient leaving prior to being seen by health care provider (principal)

== ENCOUNTER → 2024-09-17 11:38 | Outpatient (BNVA) | payer MEDICAID, SELFPAY | PROVIDERS: PCP Nurse Practitioner Family; Visit Provider Student in an Organized Health Care Education/Training Program | DX: R10.11 Right upper quadrant pain (principal) | CPT/HCPCS: 36415; 80053 ==

== ENCOUNTER 2024-09-24 07:57 | Outpatient (CLI) | payer MEDICAID, SELFPAY ==
--- NOTE | 2024-09-24 08:00 | NM_ITS ---
WS: [id number] NUCLEAR MEDICINE HIDA SCAN CLINICAL INFORMATION: RUQ pain TECHNIQUE: Following intravenous administration of 7.9 mCi of technetium 99m mebrofenin, images of the abdomen were obtained over the course of 60 minutes. Next, gallbladder ejection fraction was determined by obtaining preprandial and one-hour postprandial images of the gallbladder following oral ingestion of Ensure. FINDINGS: Normal hepatic uptake at 5 minutes. Normal hepatic excretion. Normal common bile duct and small bowel activity. Gallbladder is visualized by 10 to 15 minutes. No evidence of acute cholecystitis. Gallbladder is somewhat contracted. Gallbladder ejection fraction 87% within normal limits. No evidence of chronic cholecystitis. NM/NM hepatobiliary w phar* [id number] IMPRESSION: 1. No evidence of acute or chronic cholecystitis. 2. Gallbladder ejection fraction 87% within normal limits.
== END 2024-09-24 07:58 | disposition home or self-care (01) ==
LOC: RAD 07:58
PROVIDERS: PCP Nurse Practitioner Family; Visit Provider Student in an Organized Health Care Education/Training Program
DX: R93.5 Abnormal findings on diagnostic imaging of other abdominal regions, including retroperitoneum (principal); R10.11 Right upper quadrant pain
CPT/HCPCS: 78227; A9537

== ENCOUNTER → 2024-10-31 13:32 | Outpatient (BNVA) | payer MEDICAID, SELFPAY | PROVIDERS: PCP Nurse Practitioner Family; Visit Provider Nurse Practitioner Family | DX: N76.0 Acute vaginitis (principal); B96.89 Other specified bacterial agents as the cause of diseases classified elsewhere | CPT/HCPCS: 81000; 81513; 87481; 87491; 87591; 87661 ==

== ENCOUNTER → 2025-02-26 11:07 | Outpatient (BNVA) | payer MEDICAID, SELFPAY | PROVIDERS: PCP Nurse Practitioner Family; Visit Provider Clinical Nurse Specialist Adult Health | DX: N91.2 Amenorrhea, unspecified (principal); R30.0 Dysuria | CPT/HCPCS: 81000; 81025 ==